=== PATIENT | female | born 1950 | race Caucasian/White ===

== ENCOUNTER 2017-04-17 14:34 | Inpatient (IN) ==
[2017-04-17] MEDS ORDERED: 0.9 % Sodium Chloride 1,000 ML IVC ONE ×2 (15:51→17:40)
--- NOTE | 2017-04-17 16:21 | Emergency Department Note ---
Disposition Clinical Impression: ELIZABETH (acute kidney injury) Syncope Qualifiers: Syncope type: unspecified Qualified Code(s): R55 - Syncope and collapse Altered mental status Qualifiers: Altered mental status type: unspecified Qualified Code(s): R41.82 - Altered mental status, unspecified Disposition: Admitted As Inpatient Condition: Fair Referrals: Clifton Kumar DO [Primary Care Provider] - Forms: ED Satisfaction Letter Time of Disposition: 18:40 Syncope HPI - General Chief Complaint: ED Syncope Stated Complaint: Syncope/ Since Knee surgey on the this mon. Time Seen by Provider: 04/17/17 14:50 Source: patient Limitations: no limitations Nursing Notes Reviewed: Yes Vital Signs Reviewed: Yes - History of Present Illness HPI Narrative: Patient is a 66-year-old female who presents to [facility] ED with a chief complaint of generalized weakness, multiple episodes of almost passing out. It is occurring when she goes from sitting to standing position. States she feels that come on and has been able to catch herself each time. She has not fallen. Denies any nausea, vomiting, fever or chills. No recent illnesses. She did have a knee scope surgery on april 14 though states her symptoms started approximately 1 week prior to this. Past medical history significant for diabetes, hypertension, Crohn's disease. Patient's sister then informed us that patient did fall once and hit her head several days ago. Pt Subjective Complaint: almost passed out Onset (ago): week(s) Duration: minutes(s) Prodromal Symptoms: none Context: standing up Injuries Sustained Associated with Event: none Current Symptoms: weakness History: none Treatments prior to arrival: none Associated trauma secondary to event: No - Related Data Home Medications Medication Instructions Recorded Confirmed Allopurinol [Zyloprim 300 MG] 300 mg PO DAILY 04/14/17 04/14/17 Cholecalciferol (D-3) [Vitamin D] 2,000 unit PO DAILY 04/14/17 04/14/17 Cyanocobalamin (Vitamin B-12) 1,000 mcg PO DAILY 04/14/17 04/14/17 [Vitamin B-12] Folic Acid 1 mg PO DAILY 04/14/17 04/14/17 Gabapentin [Neurontin] 600 mg PO TID 04/14/17 04/14/17 GlipiZIDE [Glipizide ER] 10 mg PO DAILY 04/14/17 04/14/17 Lisinopril [Zestril] 20 mg PO BID 04/14/17 04/14/17 Methotrexate 25 mg SQ TH 04/14/17 04/14/17 Metoprolol Tartrate 50 mg PO BID 04/14/17 04/14/17 Omeprazole [PriLOSEC] 20 mg PO DAILY 04/14/17 04/14/17 Pioglitazone HCl 30 mg PO DAILY 04/14/17 04/14/17 Temazepam [Restoril] 30 mg PO HS 04/14/17 04/14/17 Venlafaxine HCl [Venlafaxine HCl 150 mg PO DAILY 04/14/17 04/14/17 ER] Venlafaxine [Effexor] 75 mg PO DAILY 04/14/17 04/14/17 Previous Rx's Medication Instructions Recorded Clindamycin [Cleocin] 150 mg PO Q6HR #7 capsule 04/14/17 Clindamycin [Cleocin] 150 mg PO Q6HR #7 capsule 04/14/17 HYDROcodone/Acet 5/325 mg [[place] 1 tab PO Q6H PRN 4 Days #14 tab 04/14/17 5-325 mg] Allergies Allergy/AdvReac Type Severity Reaction Status Date / Time No Known Allergies Allergy Verified 04/17/17 14:37 All systems ED: reviewed and negative except as stated. Past Medical History - Past Medical History Attestation: Yes The following information was validated with the patient. Source: patient, obtained from family Medical history: Reports: diabetes, GERD, glaucoma, hypertension, renal disease Psychiatric history: Reports: no psych history - Social History Smoking Status: Never smoker Smokeless Tobacco Status: No Alcohol use: Reports: none Drug use: Reports: none Physical Exam - General Limitations: no limitations General appearance: alert - Head Head exam: atraumatic, normocephalic, normal inspection - Eye Eye exam: Present: normal appearance, EOMI - ENT ENT exam: normal exam, normal oropharynx, mucous membranes moist - Neck Neck exam: Present: normal inspection, full ROM, trachea midline - Chest Chest inspection: Present: normal inspection, symmetric chest wall rise - Respiratory Respiratory exam: Present: normal lung sounds bilaterally - Cardiovascular Cardiovascular exam: Present: regular rate, normal rhythm, normal heart sounds - Abdominal Exam Abdominal exam: Present: soft, Non-Tender. Absent: tenderness, distention, guarding, rebound, rigidity - Extremities Exam Extremities exam: Present: normal inspection, full ROM. Absent: tenderness, pedal edema - Neurological Exam Neurological exam: Present: alert, CN II-XII intact, other (Generalized weakness ). Absent: motor sensory deficit - Psychiatric Psychiatric exam: Present: normal affect, normal mood - Skin Skin exam: Present: warm, dry, intact, normal color Course Course Narrative: Patient seen and examined. Generalized weakness. Patient appears dry, mildly hypotensive with blood pressure 90s over 50s. We will give a liter bolus of fluids. We will also get lab work to evaluate for a syncopal episodes. We will also get orthostatic vital signs. - Reevaluation(s) Reevaluation #1: Patient's lab work shows hemoglobin of 8.9. Patient denies any recent GI bleeds or obvious places of bleeding. Patient's renal function was worse at 3.36. View and also elevated. The uremia could be contributing to some of this patient's confusion. We will admit for altered mental status, generalized weakness, a chaotic. I discussed with hospitalist who has accepted patient for admission. Time: 18:37 Vital Signs Temperature 98 F 04/17/17 14:37 Pulse Rate 76 04/17/17 14:37 Respiratory Rate 20 04/17/17 14:37 Blood Pressure 88/57 04/17/17 14:37 O2 Sat by Pulse Oximetry 96 04/17/17 14:37 Temperature 98 F 04/17/17 14:37 Pulse Rate 70 04/17/17 16:37 Respiratory Rate 12 04/17/17 16:37 Blood Pressure 93/64 04/17/17 16:37 O2 Sat by Pulse Oximetry 96 04/17/17 16:37 Oxygen Delivery Oxygen Delivery Room Air Syncope - Medical Records Medical records reviewed: Yes I reviewed the patient's medical records. - Lab Data Lab results reviewed: Yes I reviewed the patient's lab results. Result diagrams: 04/17/17 15:39 04/17/17 15:39 Lab Results 04/17/17 04/17/17 04/17/17 Range/Units 15:39 15:39 15:39 WBC 7.6 (4.3-11.1) K/mcL RBC 2.96 L (3.82-4.97) M/mcL Hgb 8.9 L (11.5-15.4) g/dL Hct 28.2 L (35.3-44.9) % MCV 95.3 (83.0-100.0) fL MCH 30.1 (28.0-33.3) pg MCHC 31.6 (31.6-35.5) g/dL RDW 21.4 H (11.5-14.5) % Plt Count 146 (140-400) K/mcL MPV 11.4 (9.4-12.4) fL Immature Gran % 0.3 (0-4) % Seg Neutrophils % 76.4 % Lymphocytes % 20.0 % Monocytes % 0.4 % Eosinophils % 2.8 % Basophils % 0.1 % Neutrophils # 5.8 (1.6-8.9) K/mcL Lymphocytes # 1.5 (0.6-4.6) K/mcL Monocytes # 0.0 (0.0-1.3) K/mcL Eosinophils # 0.2 (0.0-0.6) K/mcL Basophils # 0.0 (0.0-0.2) K/mcL Sodium 136 (136-145) mEq/L Potassium 4.3 (3.5-5.1) mEq/L Chloride 113 H (98-107) mEq/L Carbon Dioxide 15 L (23-29) mEq/L BUN 71 H (8-23) mg/dL Creatinine 3.36 H (0.60-1.20) mg/dL Est GFR ( Amer) 17 L (> 60) Est GFR (Non-Af Amer) 14 L (> 60) BUN/Creatinine Ratio 21 (6-26) Glucose 117 H (70-105) mg/dL Calculated Osmolality 304 H (280-300) Calcium 8.5 L (8.6-10.3) mg/dL Total Bilirubin 0.5 (0.3-1.0) mg/dL AST 17 (13-39) Units/L ALT 11 (7-52) Units/L Alkaline Phosphatase 109 H (34-104) Units/L Troponin I < 0.03 (< 0.04) ng/mL Serum Total Protein 6.2 L (6.4-8.9) g/dL Albumin 3.7 (3.5-5.7) g/dL Globulin 2.5 (2.4-3.5) g/dL Albumin/Globulin Ratio 1.5 (1.1-2.2) TSH 4.537 (0.340-5.600) mcIU/mL - Radiology Data Radiology results reviewed: Yes I reviewed the patient's radiology results. Chest X-Ray 04/17/17 14:44 IMPRESSION: No acute process. D/ / Trenton Cooley MD / Trenton Cooley MD Interpreting Provider: Trenton Cooley MD Head CT 04/17/17 17:04 IMPRESSION: No acute intracranial abnormality. D/ / Alexis Garcia MD / Alexis Garcia MD Interpreting Provider: Alexis Garcia MD - EKG Data EKG attestation: Yes I reviewed and interpreted this EKG. EKG results narrative: EKG done at 1445 shows normal sinus rhythm with a rate of 70 beats per minute. Frequent PVCs noted. No acute ST elevation or depression. Normal axis. EKG unchanged from prior EKG done 04/13/2017 Attestation Statement - Attestation Attestation: I, Joe Huerta DO, examined this patient [id number] and my medical decision-making was reviewed with Odalys Brandon DO , Resident Physician. I agree with the documented findings, disposition and treatment plan as described except to the extent set forth below. Please see my progress notes for details. 66-year-old female presents to the emergency room with complaint of near- syncopal events. She recently had a new surgery is completed within the last week. Even prior to going to surgery patient was having near syncopal events. Over the last several days patient has had progressively worsening lightheadedness dizziness and tunnel vision. She has fallen multiple times including one head trauma after falling into the bathtub. Patient denies any other traumatic injuries this point. Physical exam suggesting the best answer questions but she does appear to be slightly somnolent. Patient does have no acute signs of head trauma this time pupils are equal round and reactive extraocular muscles are intact. Lungs are clear heart is regular abdomen is soft nontender nondistended with no guarding no rigidity and no peritoneal symptoms. Patient denies any abdominal complaints or issues. Denies any decreased urinary output for abdominal pain. On physical exam there is clinical concern for other etiology at this point. Patient will be clinically evaluated for near syncope including CT of the head chest x-ray EKG labs including urinalysis and screening laboratory workup. Disposition will be determined once his workup is completed and established. See detailed documentation of the physical exam, medical intervention, medical decision- making and disposition and the resident physician's note 1250 Patient found to have significantly increasing creatinine as well as the plan. Patient may have issues with uremia secondary or in conjunction with her confusion falls and generalized weakness. Patient will require admission and consultation with nephrology. Further evaluation will be started at this time. Disposition will be admission to the hospital. Family was informed imaging modality is still pending.
[2017-04-17 16:22] LABS: Albumin 3.7 g/dL (3.5-5.7); Albumin/Globulin Ratio 1.5 (1.1-2.2); Bilirubin,Total 0.5 mg/dL (0.3-1.0); Calcium 8.5 mg/dL (8.6-10.3); Globulin 2.5 g/dL (2.4-3.5); Potassium 4.3 mEq/L (3.5-5.1); Total Protein 6.2 g/dL (6.4-8.9)
[2017-04-17 16:49] LABS: Basophils % 0.1 %; Eosinophils # 0.2 K/mcL (0.0-0.6); Eosinophils % 2.8 %; Hematocrit 28.2 % (35.3-44.9); Hemoglobin 8.9 g/dL (11.5-15.4); Immature Granulocytes % 0.3 % (0-4); Lymphocytes # 1.5 K/mcL (0.6-4.6); Mean Corpuscular HGB Conc 31.6 g/dL (31.6-35.5); Mean Corpuscular Hemoglobin 30.1 pg (28.0-33.3); Mean Corpuscular Volume 95.3 fL (83.0-100.0); Mean Platelet Volume 11.4 fL (9.4-12.4); Monocytes % 0.4 %; Neutrophils # 5.8 K/mcL (1.6-8.9); Platelet Count 146 K/mcL (140-400); Red Blood Count 2.96 M/mcL (3.82-4.97); Red Cell Distribution Width 21.4 % (11.5-14.5); Segmented Neutrophils % 76.4 %
[2017-04-17 17:46] LABS: Thyroid Stimulating Hormone 4.537 mcIU/mL (0.340-5.600)
[2017-04-17 18:46] LABS: INR 1.1; Prothrombin Time 11.6 Seconds (9.4-12.1)
[2017-04-17] MEDS ORDERED: *HR* HYDROcodone/Acet 5/325 mg TABLET PO PRN (21:54)
[2017-04-17] MEDS ORDERED: Dextrose Gel 15 GM/37.5 ML TUBE PO PRN ×2 (22:03)
[2017-04-17] MEDS ORDERED: Naloxone 0.4 MG/ML INJ IVP PRN (22:03)
[2017-04-17] MEDS ORDERED: D5% in Water 1,000 ML IVC PRN (22:03)
[2017-04-17] MEDS ORDERED: *HR* Dextrose 50 % in Water (Syg) 50 ML SYRINGE IVP PRN (22:03)
--- NOTE | 2017-04-17 22:10 | Internal Med History&Physical ---
<Aubrey Champagne - Last Filed: 04/17/17 22:08> Date of Encounter: 04/17/17 Time of Encounter: 22:08 Assessment and Plan (1) Orthostasis Current visit: Yes Status: Acute The patient reports dizziness, disequilibrium and frequent falls. She reports that she is extremely dizzy and loses her balance with position change. Additionally, she notes that when she goes from a lying or a seated position to standing position everything gets very black and she experiences near syncopal events. She reports that she has fallen times over the last few months. Orthostatic vitals were obtained and found the patient was experiencing orthostasis. 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 Additionally, the orthostasis could be caused by volume depletion due to nausea and vomiting however she has been experiencing this for quite some time and will be for the nausea and vomiting began. While resting she is hemodynamically stable, troponin are negative and EKG is unremarkable. TTE in the morning-consult cardiology pending results Reduce MINERVA inhibitor from 20 mg to 10 mg daily Reduce beta pamella from 50 mg to 25 mg twice a day IV fluid to replace volume deficit Continuous telemetry, continuous SPO2 monitoring Ambulate With assist only (2) Postural dizziness with near syncope Current visit: Yes Status: Acute See plan above (3) [id number] kidney injury Current visit: Yes Status: Acute Acute on chronic kidney injury, patient has a history of CKD stage 4. The Injury is the result of nausea vomiting and dehydration. avoid nephrotoxins IV fluids at 125 mL per hour Recheck BMP in the morning Qualifiers: Acute renal failure type: unspecified Chronic kidney disease stage: unspecified stage Qualified Code(s): N17.9 - Acute kidney failure, unspecified ; N18.9 - Chronic kidney disease, unspecified; N18.9 - Chronic kidney disease, unspecified (4) Nausea and vomiting Current visit: Yes Status: Acute She reports a one-day history of nausea and vomiting. The last time she vomited was this afternoon after eating lunch. She states she has had a decrease in oral intake. Antiemetics IV fluids for rehydration Qualifiers: Vomiting Intractability: non-intractable Qualified Code(s): R11.2 - Nausea with vomiting, unspecified (5) Dehydration Current visit: Yes Status: Acute Dehydration secondary to nausea and vomiting. See plan above (6) Anemia Current visit: Yes Status: Acute Chronic anemia in the setting of CKD. Stable. Denies any active bleeding. Continue to monitor, CBC in the morning Qualifiers: Anemia type: unspecified type Qualified Code(s): D64.9 - Anemia, unspecified (7) Diabetes Current visit: Yes Status: Acute Sliding scale insulin coverage on a diabetic diet Qualifiers: Diabetes mellitus type: type 2 Diabetes mellitus complication status: without complication Diabetes mellitus chcf insulin use: without seniour insight manager use Qualified Code(s): E11.9 - Type 2 diabetes mellitus without complications (8) Falls Current visit: Yes Status: Acute Qualifiers: Encounter type: initial encounter Qualified Code(s): W19.XXXA - Unspecified fall, initial encounter (9) Hypertension Current visit: Yes Status: Acute H/O HTN, BP stable with rest, hypotensive with activity d/t orthostasis -decrease MINERVA to 10mg -decrease BB to 25mg BID -closely monitor hemodynamic status Qualifiers: Hypertension type: unspecified Qualified Code(s): I10 - Essential (primary ) hypertension (10) DVT prophylaxis Current visit: Yes Status: Acute EPCD's Internal Medicine - H&P: HPI Chief complaint: Dizziness, disequilibrium, falls Admitted From: Home Plans for Post Hospital Care: Home History of present illness: Ms. Schilling is a 66 year old female with a PMH of diabetes, GERD, glaucoma, hypertension, and chronic kidney disease stage IV. She presents to [facility] ED today with chief complaint of generalized weakness, multiple falls, near-syncope , disequilibrium and lightheadedness. She reports is an ongoing for greater than a month. She reports that is exacerbated when going from a lying or sitting to a standing position. She denies any fever, chills, chest pain, palpitations, tachycardia, abdominal pain, unilateral extremity swelling or pain. She admits to nausea and vomiting which began yesterday and has proceeded throughout the day as well. Past Med Surg Social Fam HX - Past Medical History Medical history: diabetes, GERD, glaucoma, hypertension, renal disease Psychiatric history: no psych history - Social History Smoking Status: Never smoker Smokeless Tobacco Status: No Alcohol use: none Drug use: none - Additional Family History Additional family history: Noncontributory Internal Medicine - H&P: Meds Allopurinol [Zyloprim 300 MG] 300 mg PO DAILY 04/14/17 [History] Cholecalciferol (D-3) [Vitamin D] 2,000 unit PO DAILY 04/14/17 [History] Cyanocobalamin (Vitamin B-12) [Vitamin B-12] 1,000 mcg PO DAILY 04/14/17 [ History] Folic Acid 1 mg PO DAILY 04/14/17 [History] Gabapentin [Neurontin] 600 mg PO TID 04/14/17 [History] GlipiZIDE [Glipizide ER] 10 mg PO BID 04/14/17 [History] HYDROcodone/Acet 5/325 mg [[place] 5-325 mg] 1 tab PO Q6H PRN 4 Days #14 tab 04/14 [Rx] Lisinopril [Zestril] 20 mg PO BID 04/14/17 [History] Methotrexate 25 mg SQ TH 04/14/17 [History] Metoprolol Tartrate 50 mg PO BID 04/14/17 [History] Omeprazole [PriLOSEC] 20 mg PO DAILY 04/14/17 [History] Pioglitazone HCl 30 mg PO DAILY 04/14/17 [History] Temazepam [Restoril] 30 mg PO HS 04/14/17 [History] Venlafaxine HCl [Venlafaxine HCl ER] 150 mg PO DAILY 04/14/17 [History] Venlafaxine [Effexor] 75 mg PO DAILY 04/14/17 [History] 3 Allergy/AdvReac Type Severity Reaction Status Date / Time No Known Allergies Allergy Verified 04/17/17 14:37 All Systems PM: A 10-system review of systems was performed and is negative for pertinent findings except as documented above in the HPI. - Constitutional Constitutional: falls - EENT Eyes: no change in vision, no discharge, no pain, no photophobia Ears: no ear discharge, no ear pain, no tinnitus Nose, mouth and throat: no dysphagia, no nasal discharge, no neck pain, no sore throat - Cardiovascular Cardiovascular ROS IM: dyspnea on exertion, lightheadedness, no chest pain, no diaphoresis, no dyspnea, no palpitations, no syncope (near syncope) - Respiratory Respiratory: dyspnea on exertion, no cough, no hemoptysis, no wheezing, no pain on inspiration, no chest congestion - Gastrointestinal Gastrointestinal: no abdominal pain, no diarrhea, no hematemesis, no hematochezia, no melena, no nausea, no vomiting - Genitourinary Genitourinary: no change in urinary stream, no dysuria, no flank pain, no hematuria - Musculoskeletal Musculoskeletal ROS IM: no numbness, no tingling - Neurological Neurological ROS: as per HPI, disequilibrium, dizziness, frequent falls - Constitutional Vitals: Temp Pulse Resp BP Pulse Ox 97.7 F 68 16 112/58 95 04/17/17 20:06 04/17/17 20:06 04/17/17 20:06 04/17/17 21:40 04/17/17 20:06 General appearance: Present: cooperative, A&O X 3, no acute distress, answers questions appropriately - Head Head exam: Present: atraumatic, normocephalic - Eye Eye exam: Present: PERRL, conjuntiva pink, sclera anicteric Pupils: Present: PERRL - Neck Neck exam general surgery: Present: supple, trachea midline. Absent: lymphadenopathy - Respiratory Respiratory exam: Present: CTAB. Absent: accessory muscle use, rales, rhonchi, wheezes - Cardiovascular Cardiovascular exam: Present: RRR, +S1, +S2. Absent: diastolic murmur, gallop, rubs, systolic murmur - GI/Abdominal GI/Abdominal exam: Present: normal bowel sounds, soft, no peritoneal signs. Absent: distended, tenderness - Extremities Exam Extremities exam: Present: warm, radial pulses palpable and symmetrical. Absent : calf tenderness, cyanotic, pedal edema - Neurological Exam Neurological exam: Present: alert, CN II-XII intact, oriented X3, no focal deficits, strengths equal and symetr throughout. Absent: normal gait, pronater drift, facial droop, speech deficit - Expanded Neurological Exam Neurological exam expanded: Absent: expressive aphasia, receptive aphasia Speech: Present: fluid speech. Absent: expressive aphasia Cranial Nerves: EOM's intact PM: Normal, gag reflex PM: Normal, nystagmus PM: Normal, tongue deviation PM: Normal Cerebellar function: finger to nose: Normal, heel to smas: Normal, Romberg: Normal Upper motor neuron: Babinski sign: Normal, Robetro neglect: Normal, pronator drift : Normal, sensory extinction: Normal Neuro motor strength exam: LUE: 5, RUE: 5, LLE: 5, RLE: 5 Coma Scale Eye Opening: Spontaneous Coma Scale Motor Response: Obeys Commands Coma Scale Verbal Response: Oriented Coma Scale Total: 15 - Skin Skin exam: Present: dry, intact Internal Med - H&P Results - Labs CBC & Chem 7: 04/17/17 15:39 04/17/17 15:39 - EKG Data EKG shows normal: sinus rhythm - EKG Data EKG comments: Sinus rhythm with frequent PVC's 04/17/17 22:16 - Impressions Impressions Chest X-Ray 04/17/17 14:44 IMPRESSION: No acute process. D/ / Trenton Cooley MD / Trenton Cooley MD Interpreting Provider: Trenton Cooley MD Head CT 04/17/17 17:04 IMPRESSION: No acute intracranial abnormality. D/ / Alexis Garcia MD / Alexis Garcia MD Interpreting Provider: Alexis Garcia MD <James Cunha - Last Filed: 04/18/17 01:39> Date of Encounter: 04/18/17 Internal Medicine - H&P: HPI History of present illness: Ms. Schilling is a 66 year old female Past Med Surg Social Fam HX - Family History Father Family Member Ethnicity: Non- Living Status: Age at : 73 Hx Family Cancer: Yes (lung cancer) Mother Age: 88 Family Member Ethnicity: Non- Living Status: Still Living All Systems PM: A 10-system review of systems was performed and is negative for pertinent findings except as documented above in the HPI. - Constitutional Vitals: Temp Pulse Resp BP Pulse Ox 97.9 F 80 16 100/58 95 04/17/17 23:34 04/17/17 23:34 04/17/17 23:34 04/17/17 23:34 04/17/17 23:34 Internal Med - H&P Results - Labs CBC & Chem 7: 04/18/17 00:22 04/17/17 15:39 Labs: Short CBC 04/18/17 Range/Units 00:22 WBC 5.7 (4.3-11.1) K/mcL Hgb 7.9 L (11.5-15.4) g/dL Hct 26.5 L (35.3-44.9) % Plt Count 115 L (140-400) K/mcL Cardiac Enzymes 04/18/17 Range/Units 00:22 Troponin I < 0.03 (< 0.04) ng/mL Urine 04/17/17 Range/Units 21:47 Urine Color Yellow (Yellow) Urine Clarity Cloudy A (Clear) Urine pH 6.0 (5.0-8.0) pH Units Ur Specific [place] 1.017 (1.010-1.025) Urine Protein 30 H (Neg-Trace) mg/dL Urine Glucose (UA) Normal (Normal) mg/dL - Attending Attestation I examined this patient and my medical decision-making was reviewed with the Resident Physician. I agree with the documented findings, disposition and treatment plan as described except to the extent set forth below.
[2017-04-17] MEDS ORDERED: 0.9 % Sodium Chloride 1,000 ML IVC SCH (22:15)
[2017-04-17 22:32] LABS: Bilirubin,Urine Negative (Negative); Blood,Urine Negative (Negative); Clarity,Urine Cloudy (Clear); Color,Urine Yellow (Yellow); Glucose,Urine (UA) Normal (Normal); Ketones,Urine Negative (Negative); Leukocyte Esterase,Urine Negative (Negative); Nitrite,Urine Negative (Negative); Protein,Urine 30 mg/dL (Neg-Trace); Specific Gravity,Urine 1.017 (1.010-1.025); Urobilinogen,Urine Normal (Normal)
[2017-04-17 22:34] LABS: Bacteria,Urine None Seen per hpf (None-Few); Hyaline Casts,Urine Few per lpf (None-Few); RBC,Urine 0-3 per hpf (0-3); Squamous Epithelial Cell,Urine Many per lpf (None-Few)
[2017-04-17 22:38] LABS: Amphetamine Screen,Urine Negative ng/mL (Cutoff=1000); Barbiturate Screen,Urine Negative ng/mL (Cutoff=200); Benzodiazepines Screen,Urine Positive ng/mL (Cutoff=200); Cannabinoid Screen,Urine Negative ng/mL (Cutoff = 50); Cocaine Screen,Urine Negative ng/mL (Cutoff= 300); Opiate Screen,Urine Positive ng/mL (Cutoff=300); Phencyclidine Screen,Urine Negative ng/mL (Cutoff=25)
[2017-04-18 01:09] LABS: Hematocrit 26.5 % (35.3-44.9); Hemoglobin 7.9 g/dL (11.5-15.4); Mean Corpuscular HGB Conc 29.8 g/dL (31.6-35.5); Mean Corpuscular Hemoglobin 29.6 pg (28.0-33.3); Mean Corpuscular Volume 99.3 fL (83.0-100.0); Mean Platelet Volume 11.2 fL (9.4-12.4); Platelet Count 115 K/mcL (140-400); Red Blood Count 2.67 M/mcL (3.82-4.97); Red Cell Distribution Width 21.2 % (11.5-14.5)
[2017-04-18 02:33] LABS: Calcium 8.1 mg/dL (8.6-10.3); Potassium 3.8 mEq/L (3.5-5.1)
[2017-04-18] MEDS ORDERED: Gabapentin 300 MG CAPSULE PO SCH (09:00)
[2017-04-18] MEDS ORDERED: Lisinopril 20 MG TABLET PO SCH (09:00)
[2017-04-18] MEDS: Folic Acid 1 MG TABLET PO SCH (09:08)
[2017-04-18] MEDS: Cholecalciferol (D-3) 1,000 UNIT TABLET PO SCH (09:08)
[2017-04-18] MEDS: Cyanocobalamin (B-12) 1,000 MCG TABLET PO SCH (09:08)
[2017-04-18] MEDS: Insulin LISPRO 300 UNITS/3 ML VIAL SQ SCH ×4 (09:09→21:48)
[2017-04-18] MEDS: Sodium Bicarbonate 150 MEQ in D5% in Water 1,000 ML IVC SCH (11:02)
[2017-04-18] MEDS: Gabapentin 100 MG CAPSULE PO SCH ×2 (14:42→21:49)
--- NOTE | 2017-04-18 15:24 | Internal Med Progress Note ---
Date of Encounter: 04/18/17 Time of Encounter: 14:56 - Subjective Interval history: Patient seen and examined at bedside. Reports of feeling better since hospitalization. States there is improvement in her dizziness and in her n/v tolerating PO intake better Assessment and Plan (1) Orthostasis Current visit: Yes Status: Acute Noted to be positive for orthostatic hypotension concern for drug induced hypotension in addition to the orthostasis as pt's BP has been appropriately controlled with half the dose of BB and holding home dose of Lisinopril Pt clinically improving with adjustment in home medications Consider adding Midodrine prior to discharge if symptoms persist (2) Postural dizziness with near syncope Current visit: Yes Status: Acute See plan above (3) Zmnbk-np-fsglyck kidney injury Current visit: Yes Status: Acute Acute on chronic kidney injury, patient has a history of CKD stage 4 Likely secondary to dehydration from the nausea and vomiting renal function improved from previous day continue IV fluids hold Lisinopril at this time will continue to closely monitor Qualifiers: Acute renal failure type: unspecified Chronic kidney disease stage: unspecified stage Qualified Code(s): N17.9 - Acute kidney failure, unspecified ; N18.9 - Chronic kidney disease, unspecified; N18.9 - Chronic kidney disease, unspecified (4) Nausea and vomiting/NAGMA Current visit: Yes Status: Acute Improving continue anti-emetics support as needed noted to have normal anion gap metabolic acidosis likely secondary to GI losses from the n/v Bicarb deficit: 8.6am will d/c 0.9%NS and start 3am of NaBicarb in D5W at 100cc/hr one amp bicarb IVP given will closely monitor Qualifiers: Vomiting Intractability: non-intractable Qualified Code(s): R11.2 - Nausea with vomiting, unspecified (5) Dehydration Current visit: Yes Status: Acute Dehydration secondary to nausea and vomiting. See plan above (6) Anemia Current visit: Yes Status: Acute H&H low but acceptable no acute bleeding reported continue to closely monitor H&H Qualifiers: Anemia type: unspecified type Qualified Code(s): D64.9 - Anemia, unspecified (7) Diabetes Current visit: Yes Status: Acute Sliding scale insulin coverage on a diabetic diet Qualifiers: Diabetes mellitus type: type 2 Diabetes mellitus complication status: without complication Diabetes mellitus intermediate card tender insulin use: without shelter use Qualified Code(s): E11.9 - Type 2 diabetes mellitus without complications (8) Falls Current visit: Yes Status: Acute obtain PT evaluation prior to discharge Qualifiers: Encounter type: initial encounter Qualified Code(s): W19.XXXA - Unspecified fall, initial encounter (9) Hypertension Current visit: Yes Status: Acute BP within acceptable range despite lowering BB dose and holding MINERVA inhibitor concern for drug induced hypotension contributing to patient's presenting symptoms closely monitor BP and adjust home meds prior to discharge Qualifiers: Hypertension type: unspecified Qualified Code(s): I10 - Essential (primary ) hypertension (10) DVT prophylaxis Current visit: Yes Status: Acute EPCD's - Constitutional Vitals: Temp Pulse Resp BP Pulse Ox 98.1 F 90 16 143/72 93 04/18/17 13:00 04/18/17 13:00 04/18/17 13:00 04/18/17 13:00 04/18/17 13:00 General appearance: Present: cooperative, A&O X 3, no acute distress, obese, answers questions appropriately - Head Head exam: Present: atraumatic, normocephalic - Eye Eye exam: Present: conjuntiva pink, sclera anicteric - Respiratory Respiratory exam: Present: CTAB. Absent: respiratory distress, wheezes - Cardiovascular Cardiovascular exam: Present: RRR, +S1, +S2. Absent: diastolic murmur, gallop, rubs, systolic murmur - GI/Abdominal GI/Abdominal exam: Present: normal bowel sounds, soft, no peritoneal signs. Absent: distended, tenderness - Extremities Exam Extremities exam: Present: warm, radial pulses palpable and symmetrical. Absent : calf tenderness - Neurological Exam Neurological exam: Present: alert, oriented X3 Internal Medicine: Result - Labs CBC & Chem 7: 04/18/17 00:22 04/18/17 00:22 Labs: Short CBC 04/18/17 Range/Units 00:22 WBC 5.7 (4.3-11.1) K/mcL Hgb 7.9 L (11.5-15.4) g/dL Hct 26.5 L (35.3-44.9) % Plt Count 115 L (140-400) K/mcL BMP 04/18/17 00:22 Sodium 140 Potassium 3.8 Chloride 118 H Carbon Dioxide 13 L BUN 67 H Creatinine 2.91 H Glucose 67 L Calcium 8.1 L Cardiac Enzymes 04/18/17 Range/Units 00:22 Troponin I < 0.03 (< 0.04) ng/mL Urine 04/17/17 Range/Units 21:47 Urine Color Yellow (Yellow) Urine Clarity Cloudy A (Clear) Urine pH 6.0 (5.0-8.0) pH Units Ur Specific [place] 1.017 (1.010-1.025) Urine Protein 30 H (Neg-Trace) mg/dL Urine Glucose (UA) Normal (Normal) mg/dL - ABG Interpretation ABG results: PT/INR, D-dimer PT 11.6 Seconds (9.4-12.1) 04/17/17 15:35 - Impressions Impressions Echocardiogram 04/18/17 22:07 Impressions: LVEF 60-65%. Normal LV chamber size, wall thickness and function. Mild left ventricular diastolic dysfunction. Normal right ventricular structure and function. No evidence of pulmonary hypertension. No significant valvular dysfunction. Left Ventricular Wall Motion: Rest Echo Findings All wall segments showed normal motion. Findings: Study Quality * Technically adequate exam. ECG Findings * Normal sinus rhythm. Left Ventricle * LVEF 60-65%. * Normal LV chamber size, wall thickness and function. * Mild left ventricular diastolic dysfunction. Right Ventricle * Normal right ventricular structure and function. Left Atrium * Mild to moderately dilated left atrium. Right Atrium * Mid to moderately dilated right atrium. Interatrial Septum * Interatrial septum not well evaluated. Aortic Valve * Trileaflet aortic valve with normal function. * No aortic regurgitation. * No aortic stenosis. Mitral Valve * Normal mitral valve structure and function. * No mitral regurgitation. * No mitral stenosis. Tricuspid Valve * Normal tricuspid valve structure and function. * Trace tricuspid regurgitation. * No evidence of pulmonary hypertension. Pulmonic Valve * Normal pulmonic valve structure and function. * Trace pulmonic regurgitation. Aorta * Normally sized aortic root. Pericardium * The pericardium appears normal. IVC * Normal IVC dimensions and inspiratory collapse. Pulmonary Artery * Normal visualized portions of the main pulmonary artery. - VTE Documentation of Mechanical Device: Intermittent pneumatic compression device Consult Discharge Plan - Plan Referrals: Clifton Kumar DO [Primary Care Provider] -
--- NOTE | 2017-04-18 18:40 | Electrocardiograph Report ---
[address] [address] Test Date: 2017-04-17 Pat Name: Jennifer Schilling Department: [id number] Room: 2A22 Gender: F Adoption Services Manager: : [id number] Requested By: Joe Huerta Order Number: [id number] Reading MD: Claudia Spear Measurements Intervals [place] Rate: 70 P: -4 OK: 148 QRS: 2 QRSD: 102 T: 61 QT: 394 QTc: 414 Interpretive Statements SINUS RHYTHM WITH FREQUENT VENTRICULAR PREMATURE COMPLEXES NONSPECIFIC ST & T-WAVE ABNORMALITY ABNORMAL RHYTHM ECG Electronically Signed On 04-18-2017 18:38:51 EST by Claudia Spear
[2017-04-18] MEDS: Temazepam 15 MG CAPSULE PO SCH (21:49)
[2017-04-18] MEDS: Venlafaxine XR (24 HR) 150 MG CAP.ER.24H PO SCH (21:51)
[2017-04-19] MEDS: Sodium Bicarbonate 150 MEQ in D5% in Water 1,000 ML IVC SCH ×3 (02:15→20:08)
[2017-04-19 04:49] LABS: Calcium 7.9 mg/dL (8.6-10.3); Magnesium 0.9 mg/dL (1.6-2.6); Phosphorous 2.9 mg/dL (2.7-4.5); Potassium 2.8 mEq/L (3.5-5.1)
[2017-04-19 05:06] LABS: Eosinophils % 2.1 %; Hematocrit 19.5 % (35.3-44.9); Immature Granulocytes % 0.3 % (0-4)
[2017-04-19 05:08] LABS: Eosinophils # 0.1 K/mcL (0.0-0.6); Hemoglobin 6.4 g/dL (11.5-15.4); Lymphocytes % 30.5 %; Mean Corpuscular HGB Conc 32.8 g/dL (31.6-35.5); Mean Corpuscular Hemoglobin 30.2 pg (28.0-33.3); Mean Platelet Volume 10.4 fL (9.4-12.4); Monocytes % 0.3 %; Neutrophils # 2.2 K/mcL (1.6-8.9); Nucleated Red Blood Cells 0.6 /100 WBC (0); Red Blood Count 2.12 M/mcL (3.82-4.97); Red Cell Distribution Width 20.2 % (11.5-14.5); Segmented Neutrophils % 66.8 %
[2017-04-19 05:10] LABS: Platelet Count 95 K/mcL (140-400)
[2017-04-19 05:38] LABS: Anisocytosis 2+ (Not Present); Macrocytosis Present (Not Present); Platelet Estimate Decreased (Normal)
[2017-04-19 05:39] LABS: Microcytosis Present (Not Present)
[2017-04-19] MEDS ORDERED: Potassium Chloride 40 MEQ, Lidocaine 1% 2 ML in D5% in Water 500 ML IVPB ONE (06:00)
[2017-04-19] MEDS: Gabapentin 100 MG CAPSULE PO SCH ×3 (08:55→20:04)
[2017-04-19] MEDS: Cyanocobalamin (B-12) 1,000 MCG TABLET PO SCH (08:55)
[2017-04-19] MEDS: Cholecalciferol (D-3) 1,000 UNIT TABLET PO SCH (08:55)
[2017-04-19] MEDS: Venlafaxine XR (24 HR) 150 MG CAP.ER.24H PO SCH (08:56)
[2017-04-19] MEDS: Insulin LISPRO 300 UNITS/3 ML VIAL SQ SCH ×4 (08:59→20:07)
[2017-04-19] MEDS: Ondansetron 4 MG/2 ML VIAL IVP PRN (09:09)
[2017-04-19] MEDS: Folic Acid 1 MG TABLET PO SCH (09:09)
--- NOTE | 2017-04-19 11:54 | Gastroenterology Consult Note ---
<Marj Pepper - Last Filed: 04/19/17 12:02> Date of Encounter: 04/19/17 Time of Encounter: 11:20 - Assessment and plan (1) Crohns disease Current Visit: Yes Status: Acute Assessment and plan: Pt has history of Crohn's disease since . She has been on methotrexate for 2 years. She has continued 10-15 BM a day, humira and other medications were prescribed but were not covered by insurance, and pt was unable to afford. She is admitted with near syncope, weakness. She has drop in hgb level. Will check fecal calpro, to rule out Crohn's flare and GI panel to rule out C-dif. She is being transfused per hospitalist service. (2) Anemia Current Visit: Yes Status: Acute Assessment and plan: Denies any active or recent bleeding, will also order iron panel and ferritin. Qualifiers: Anemia type: unspecified type Qualified Code(s): D64.9 - Anemia, unspecified - Time Spent With Patient Total time spent is greater than 50% in coordination of care (as documented) at patient's floor/unit and/or counseling patient: GI History of Present Illness - Data of Consult Patient: known to practice within the last 3 years Consult date: 04/19/17 Requesting Physician: Lorelei Sarmiento MD - Consult Narrative Reason for consult: anemia/Crohn's disease History of present illness: Ms. Schilling is a 66 year old female with a PMH of diabetes, GERD, glaucoma, hypertension, chronic kidney disease stage IV, and crohn's disease. She presents to [facility] ED today with chief complaint of generalized weakness, multiple falls, near-syncope, disequilibrium and lightheadedness. She reports is an ongoing for greater than a month and is worse with position changes. She denies any fever, chills, chest pain, palpitations, tachycardia, abdominal pain , unilateral extremity swelling or pain. She reported nausea and vomiting for one day prior to presentation. She has a history of Crohn's disease for which she is followed by Dr Pickard. She had hemicolectomy in 1981. She has been on methotrexate for since 03/21. She was tried on asacol in the past. Humira was prescribed but she was unable to afford due to high copay. She reports 10-15 BMs a day which is normal for her. She states she had some bleeding a while ago but none recently. She denies any black or tarry stools. The patients hemoglobin dropped to 6.4 this morning from a baseline of 10-11. Therefore GI was consult noted. WBCs 3.3, platelet count 95, sodium 141, potassium 2.8, BUN 44, creatinine 1.72, total bilirubin 0.5, AST 17, ALT 11, alkaline phosphatase 109, albumin 3.7. Colonoscopy: 10/20 ileum normal, erythematous mucosa in rectum and sigmoid colon , pathology chronic inflammation EGD: 2012 medium sized hiatal hernia, gastritis NSAIDS/ASA: denies Anticoagulants: denies Past Med Surg Social Fam HX - Past Medical History Medical history: diabetes, GERD, glaucoma, hypertension, renal disease Psychiatric history: no psych history - Social History Smoking Status: Never smoker Smokeless Tobacco Status: No Alcohol use: none Drug use: none - Family History Father Family Member Ethnicity: Non- Living Status: Age at : 73 Hx Family Cancer: Yes (lung cancer) Mother Age: 88 Family Member Ethnicity: Non- Living Status: Still Living Review of Systems: GI: as per [facility]: denies fever or chills EYES: denies yellow discoloration ENT: denies pain with swallowing or difficulty swallowing CARDIO: denies chest pain, palpitations RESP: Shortness of breath with exertion : denies change in color of urine NEURO: see HPI HEME: Denies any bruising MS: chronic back and joint pain. DERM: denies rash or itching PSYCH: Denies history of anxiety or depression - Constitutional Vitals: Temp Pulse Resp BP Pulse Ox 98.7 F 91 15 124/74 93 04/19/17 07:00 04/19/17 07:00 04/19/17 07:00 04/19/17 07:00 04/19/17 07:00 Exam: CONSTITUTIONAL:~alert, no acute distress.~HEAD:~normocephalic.~EYES:~no jaundice.~NECK:~no obvious swelling.~HEART:~regular rate and rhythm, no murmurs. ~LUNGS:~bilateral good air entry.~ABDOMEN:~non distended, soft, diffusely tender , midline abdominal scar well healed, no organomegaly.~RECTAL EXAM:~Deferred.~ EXTREMITIES:~no clubbing, cyanosis, 1+ BLE edema~SKIN:~ pallor noted.~NEUROLOGIC :~no obvious focal defect.~~~~ Results - Labs CBC & Chem 7: 04/19/17 04:49 04/19/17 03:44 Labs: Last Result Calcium 7.9 mg/dL (8.6-10.3) L 04/19/17 03:44 Troponin I < 0.03 ng/mL (< 0.04) 04/18/17 00:22 Urine Opiates Screen Positive ng/mL (Lojcij=121) H 04/17/17 21:47 Entire Visit Hgb 6.4 g/dL (11.5-15.4) L D 04/19/17 04:49 Hct 19.5 % (35.3-44.9) L 04/19/17 04:49 PT 11.6 Seconds (9.4-12.1) 04/17/17 15:35 Total Bilirubin 0.5 mg/dL (0.3-1.0) 04/17/17 15:39 AST 17 Units/L (13-39) 04/17/17 15:39 ALT 11 Units/L (7-52) 04/17/17 15:39 - ABG ABG results: PT/INR, D-dimer PT 11.6 Seconds (9.4-12.1) 04/17/17 15:35 - Impressions Impressions Echocardiogram 04/18/17 22:07 Impressions: LVEF 60-65%. Normal LV chamber size, wall thickness and function. Mild left ventricular diastolic dysfunction. Normal right ventricular structure and function. No evidence of pulmonary hypertension. No significant valvular dysfunction. Left Ventricular Wall Motion: Rest Echo Findings All wall segments showed normal motion. Findings: Study Quality * Technically adequate exam. ECG Findings * Normal sinus rhythm. Left Ventricle * LVEF 60-65%. * Normal LV chamber size, wall thickness and function. * Mild left ventricular diastolic dysfunction. Right Ventricle * Normal right ventricular structure and function. Left Atrium * Mild to moderately dilated left atrium. Right Atrium * Mid to moderately dilated right atrium. Interatrial Septum * Interatrial septum not well evaluated. Aortic Valve * Trileaflet aortic valve with normal function. * No aortic regurgitation. * No aortic stenosis. Mitral Valve * Normal mitral valve structure and function. * No mitral regurgitation. * No mitral stenosis. Tricuspid Valve * Normal tricuspid valve structure and function. * Trace tricuspid regurgitation. * No evidence of pulmonary hypertension. Pulmonic Valve * Normal pulmonic valve structure and function. * Trace pulmonic regurgitation. Aorta * Normally sized aortic root. Pericardium * The pericardium appears normal. IVC * Normal IVC dimensions and inspiratory collapse. Pulmonary Artery * Normal visualized portions of the main pulmonary artery. Consult Discharge Plan - Plan Referrals: Clifton Kumar DO [Primary Care Provider] - 04/25/17 9:30 am (Please follow up as schedule...) <Margarito Pickard - Last Filed: 04/19/17 21:01> Date of Encounter: 04/19/17 - Time Spent With Patient Total time spent is greater than 50% in coordination of care (as documented) at patient's floor/unit and/or counseling patient: GI History of Present Illness - Data of Consult Requesting Physician: Lorelei Sarmiento MD - Consult Narrative History of present illness: Ms. Schilling is a 66 year old female - Constitutional Vitals: Temp Pulse Resp BP Pulse Ox 98.5 F 98 18 122/65 95 04/19/17 18:39 04/19/17 18:39 04/19/17 18:39 04/19/17 18:39 04/19/17 18:39 Results - Labs CBC & Chem 7: 04/19/17 04:49 04/19/17 16:51 Labs: Last Result Calcium 7.9 mg/dL (8.6-10.3) L 04/19/17 03:44 Iron 137 mcg/dL (50-170) 04/19/17 11:49 % Saturation 39 % (15-50) 04/19/17 11:49 Transferrin 248 mg/dL (203-362) 04/19/17 11:49 Ferritin 215 ng/ml (10-120) H 04/19/17 11:49 Troponin I < 0.03 ng/mL (< 0.04) 04/18/17 00:22 Urine Opiates Screen Positive ng/mL (Vknlyd=208) H 04/17/17 21:47 Entire Visit Hgb 6.4 g/dL (11.5-15.4) L D 04/19/17 04:49 Hct 19.5 % (35.3-44.9) L 04/19/17 04:49 PT 11.6 Seconds (9.4-12.1) 04/17/17 15:35 Ferritin 215 ng/ml (10-120) H 04/19/17 11:49 Total Bilirubin 0.5 mg/dL (0.3-1.0) 04/17/17 15:39 AST 17 Units/L (13-39) 04/17/17 15:39 ALT 11 Units/L (7-52) 04/17/17 15:39 - ABG ABG results: PT/INR, D-dimer PT 11.6 Seconds (9.4-12.1) 04/17/17 15:35 - Attending Attestation I examined this patient and my medical decision-making was reviewed with the HEAT TREATING FURNACE TENDER. I agree with the documented findings, disposition and treatment plan as described except to the extent set forth below. Pt with Crohns, on methrexate but still with many BMs. Will start on solumedrol for poss flare
[2017-04-19] MEDS ORDERED: 0.9 % Sodium Chloride 250 ML ONE (12:49)
[2017-04-19 13:01] LABS: % Iron Saturation 39 % (15-50); Ferritin 215 ng/ml (10-120); Iron 137 mcg/dL (50-170); Transferrin 248 mg/dL (203-362)
[2017-04-19 15:18] LABS: Adenovirus F 40/41 PCR Not detected (Not detect); Astrovirus PCR Not detected (Not detect); C.difficile Toxin A/B by PCR Not detected (Not detect); Campylobacter by PCR Not detected (Not detect); Cryptosporidium by PCR Not detected (Not detect); Cyclospora cayetanensis PCR Not detected (Not detect); E. coli O157 by PCR Not detected (Not detect); Entamoeba histolytica PCR Not detected (Not detect); Enteroaggregative E.coli(EAEC) Not detected (Not detect); Enteropathogenic E.coli(EPEC) Not detected (Not detect); Enterotoxigenic E.coli (ETEC) Not detected (Not detect); Giardia lamblia PCR Not detected (Not detect); Norovirus GI/GII PCR Not detected (Not detect); Plesiomonas shigelloides PCR Not detected (Not detect); Rotavirus A PCR Not detected (Not detect); Salmonella PCR Not detected (Not detect); Sapovirus PCR Not detected (Not detect); Shig/EnteroinvasiveE coli EIEC Not detected (Not detect); Shigalike tox-prod E coli STEC Not detected (Not detect); Vibrio PCR Not detected (Not detect); Vibrio cholerae PCR Not detected (Not detect); Yersinia enterocolitica PCR Not detected (Not detect)
--- NOTE | 2017-04-19 16:39 | Internal Med Progress Note ---
Date of Encounter: 04/19/17 Time of Encounter: 10:30 - Assessment and plan (1) Anemia Current Visit: Yes Status: Acute Assessment and plan: Hgb dropped to 6.4; previously 10. No obvious active bleeding. Patient denies melena. Symptomatic with general weakness. 2 units PRBC ordered. Hemodynamically stable. GI consult. Check occult stool. Monitor H&H, transfuse for Hgb less than 7. Qualifiers: Anemia type: unspecified type Qualified Code(s): D64.9 - Anemia, unspecified (2) Hypokalemia Current Visit: Yes Status: Acute Assessment and plan: K 2.4; secondary to loose stools. Replacement ordered. Monitor repeat BMP, magnesium. (3) Crohns disease Current Visit: Yes Status: Acute Assessment and plan: hx Crohn's disease since 1980s. Has been on methotrexate for 2 years. Reports 10 -15 BM a day, humira and other medications were prescribed but were not covered by insurance. Fecal ELIAS pro-to rule out Crohn's flare and GI panel to rule out C. difficile pending. GI following Qualifiers: Gastrointestinal tract location: unspecified location Digestive disease complication type: unspecified complication Qualified Code(s): K50.919 - Crohn 's disease, unspecified, with unspecified complications (4) Neqgc-[id number]-mzpnwpo kidney injury Current Visit: Yes Status: Acute Assessment and plan: secondary excessive GI losses. Renal function improving with IV fluids. Avoid nephrotoxic agents if possible. Monitor repeat CMP. Qualifiers: Acute renal failure type: unspecified Chronic kidney disease stage: unspecified stage Qualified Code(s): N17.9 - Acute kidney failure, unspecified ; N18.9 - Chronic kidney disease, unspecified; N18.9 - Chronic kidney disease, unspecified (5) Orthostasis Current Visit: Yes Status: Acute Assessment and plan: Noted to be positive for orthostatic hypotension concern for drug induced hypotension in addition to the orthostasis as pt's BP has been appropriately controlled with half the dose of BB and holding home dose of Lisinopril Pt clinically improving with adjustment in home medications Consider adding Midodrine prior to discharge if symptoms persist (6) Nausea and vomiting Current Visit: Yes Status: Acute Assessment and plan: normal anion gap metabolic acidosis likely secondary to GI losses from the n/v. Appears to be improving on 2/14. Continue IV fluids. Monitor repeat CMP. Qualifiers: Vomiting Intractability: non-intractable Qualified Code(s): R11.2 - Nausea with vomiting, unspecified (7) DVT prophylaxis Current Visit: Yes Status: Acute Assessment and plan: SCD - Subjective Interval history: Seen and examined at bedside; patient is new to me. Information obtained from chart review and patient report. Patient complains of being weak and tired. Still having frequent loose stools. No active bleeding. Patient denies melena. She is agreeable to 2 units PRBC. - Constitutional Vitals: Temp Pulse Resp BP Pulse Ox 98.8 F 82 16 130/75 93 04/19/17 15:23 04/19/17 15:23 04/19/17 15:23 04/19/17 15:23 04/19/17 15:10 General appearance: Present: cooperative, A&O X 3, no acute distress, obese, answers questions appropriately - Head Head exam: Present: atraumatic, normocephalic - Eye Eye exam: Present: PERRL, conjuntiva pink, sclera anicteric Pupils: Present: PERRL - Neck Neck exam general surgery: Present: supple, trachea midline. Absent: lymphadenopathy - Respiratory Respiratory exam: Present: CTAB. Absent: accessory muscle use, rales, rhonchi, wheezes - Cardiovascular Cardiovascular exam: Present: RRR, +S1, +S2. Absent: diastolic murmur, gallop, rubs, systolic murmur - GI/Abdominal GI/Abdominal exam: Present: normal bowel sounds, soft, no peritoneal signs. Absent: distended, tenderness - Extremities Exam Extremities exam: Present: warm, radial pulses palpable and symmetrical. Absent : calf tenderness, cyanotic, pedal edema - Neurological Exam Neurological exam: Present: CN II-XII intact, oriented X3, no focal deficits. Absent: pronater drift, facial droop, speech deficit - Skin Skin exam: Present: dry, intact Internal Medicine: Result - Labs CBC & Chem 7: 04/19/17 04:49 04/19/17 03:44 Labs: Short CBC 04/19/17 Range/Units 04:49 WBC 3.3 L (4.3-11.1) K/mcL Hgb 6.4 L D (11.5-15.4) g/dL Hct 19.5 L (35.3-44.9) % Plt Count 95 L (140-400) K/mcL Neutrophils # 2.2 (1.6-8.9) K/mcL BMP 04/19/17 03:44 Sodium 141 Potassium 2.8 L Chloride 111 H Carbon Dioxide 22 L BUN 44 H Creatinine 1.72 H Glucose 132 H Calcium 7.9 L - ABG Interpretation ABG results: PT/INR, D-dimer PT 11.6 Seconds (9.4-12.1) 04/17/17 15:35 - VTE Documentation of Mechanical Device: Intermittent pneumatic compression device Consult Discharge Plan - Plan Referrals: Clifton Kumar DO [Primary Care Provider] - 04/25/17 9:30 am (Please follow up as schedule...)
[2017-04-19] MEDS: Temazepam 15 MG CAPSULE PO SCH (20:05)
[2017-04-20] MEDS: Sodium Bicarbonate 150 MEQ in D5% in Water 1,000 ML IVC SCH (04:20)
[2017-04-20 05:04] LABS: Red Blood Count 2.45 M/mcL (3.82-4.97)
[2017-04-20 05:06] LABS: Hemoglobin 7.4 g/dL (11.5-15.4); Mean Corpuscular HGB Conc 33.6 g/dL (31.6-35.5); Mean Corpuscular Hemoglobin 30.2 pg (28.0-33.3); Mean Corpuscular Volume 89.8 fL (83.0-100.0); Mean Platelet Volume 10.3 fL (9.4-12.4); Red Cell Distribution Width 18.9 % (11.5-14.5)
[2017-04-20 05:09] LABS: Platelet Count 76 K/mcL (140-400)
[2017-04-20 05:15] LABS: Calcium 8.2 mg/dL (8.6-10.3); Magnesium 1.5 mg/dL (1.6-2.6); Potassium 2.8 mEq/L (3.5-5.1)
[2017-04-20] MEDS: Cholecalciferol (D-3) 1,000 UNIT TABLET PO SCH (08:11)
[2017-04-20] MEDS: Venlafaxine XR (24 HR) 150 MG CAP.ER.24H PO SCH (08:11)
[2017-04-20] MEDS: Folic Acid 1 MG TABLET PO SCH (08:11)
[2017-04-20] MEDS: Cyanocobalamin (B-12) 1,000 MCG TABLET PO SCH (08:11)
[2017-04-20] MEDS: Gabapentin 100 MG CAPSULE PO SCH ×3 (08:11→20:11)
[2017-04-20] MEDS ORDERED: *HR* Methotrexate 2.5 MG TABLET PO SCH (09:00)
[2017-04-20] MEDS: Insulin LISPRO 300 UNITS/3 ML VIAL SQ SCH ×4 (09:32→20:08)
[2017-04-20] MEDS: methylPREDNISolone 60 MG in 0.9 % Sodium Chloride 100 ML IVPB SCH (09:32)
--- NOTE | 2017-04-20 11:27 | Event Note ---
Date of Encounter: 04/20/17 Time of Encounter: 11:24 Ms Schilling is a 66 year old patient of Dr Janessa Johnson who was admitted for ELIZABETH on CKD and dehydration. On admission GFR was 14 and Scr 3.36; today GFR 40 and Scr 1.31. ELIZABETH has now resolved and kidney function is actually above baseline at this time. Please notify us if there is a change in kidney function otherwise patient has a f/u appointment with Dr Riddle on Monday. Thank you.
[2017-04-20] MEDS: Nystatin SUSP 5 ML UD.LIQ PO SCH ×3 (13:08→20:11)
[2017-04-20] MEDS ORDERED: 0.9 % Sodium Chloride 250 ML ONE (14:52)
--- NOTE | 2017-04-20 16:19 | Internal Med Progress Note ---
Date of Encounter: 04/20/17 Time of Encounter: 10:30 - Assessment and plan (1) Anemia Current Visit: Yes Status: Acute Assessment and plan: Hgb dropped to 6.4; previously 10. No obvious active bleeding. Patient denies melena. Symptomatic with general weakness. 2 units PRBC ordered. Hemodynamically stable. GI consult. Check occult stool. Monitor H&H, transfuse for Hgb less than 8. Repeat Hgb 7.4; transfuse another unit PRBC. GI updated; possible C-scope this admission. Qualifiers: Anemia type: unspecified type Qualified Code(s): D64.9 - Anemia, unspecified (2) Hypokalemia Current Visit: Yes Status: Acute Assessment and plan: K 2.4; secondary to loose stools and low Mg. Monitor serial CMP and replace PRN. K 2.8, Mg 1.5 on 04/20; repeat CMP at 1700 (3) Crohns disease Current Visit: Yes Status: Acute Assessment and plan: hx Crohn's disease since . Has been on methotrexate for 2 years. Reports 10 -15 BM a day, humira and other medications were prescribed but were not covered by insurance. Stool studies negative. Cont IV steroids. GI following Qualifiers: Gastrointestinal tract location: unspecified location Digestive disease complication type: unspecified complication Qualified Code(s): K50.919 - Crohn 's disease, unspecified, with unspecified complications (4) Kriel-dw-gjafifh kidney injury Current Visit: Yes Status: Acute Assessment and plan: secondary excessive GI losses. Renal function improving with IV fluids. Avoid nephrotoxic agents if possible. Monitor repeat CMP. Qualifiers: Acute renal failure type: unspecified Chronic kidney disease stage: unspecified stage Qualified Code(s): N17.9 - Acute kidney failure, unspecified ; N18.9 - Chronic kidney disease, unspecified; N18.9 - Chronic kidney disease, unspecified (5) Orthostasis Current Visit: Yes Status: Acute Assessment and plan: Noted to be positive for orthostatic hypotension. concern for drug induced hypotension in addition to the orthostasis as pt's BP has been appropriately controlled with half the dose of BB and holding home dose of Lisinopril . Pt clinically improving with adjustment in home medications. Consider adding Midodrine prior to discharge if symptoms persist (6) Nausea and vomiting Current Visit: Yes Status: Acute Assessment and plan: normal anion gap metabolic acidosis likely secondary to GI losses from the n/v. Appears to be improving on 04/19. Continue IV fluids. Monitor repeat CMP. Qualifiers: Vomiting Intractability: non-intractable Qualified Code(s): R11.2 - Nausea with vomiting, unspecified (7) DVT prophylaxis Current Visit: Yes Status: Acute Assessment and plan: SCD - Subjective Interval history: Seen and examined at bedside; says she is still weak and tired but overall improved. - Constitutional Vitals: Temp Pulse Resp BP Pulse Ox 99.5 F 84 17 124/70 92 04/20/17 15:23 04/20/17 15:23 04/20/17 15:23 04/20/17 15:23 04/20/17 15:23 General appearance: Present: cooperative, A&O X 3, no acute distress, obese, answers questions appropriately - Head Head exam: Present: atraumatic, normocephalic - Eye Eye exam: Present: PERRL, conjuntiva pink, sclera anicteric Pupils: Present: PERRL - Neck Neck exam general surgery: Present: supple, trachea midline. Absent: lymphadenopathy - Respiratory Respiratory exam: Present: CTAB. Absent: accessory muscle use, rales, rhonchi, wheezes - Cardiovascular Cardiovascular exam: Present: RRR, +S1, +S2. Absent: diastolic murmur, gallop, rubs, systolic murmur - GI/Abdominal GI/Abdominal exam: Present: normal bowel sounds, soft, no peritoneal signs. Absent: distended, tenderness - Extremities Exam Extremities exam: Present: warm, radial pulses palpable and symmetrical. Absent : calf tenderness, cyanotic, pedal edema - Neurological Exam Neurological exam: Present: CN II-XII intact, oriented X3, no focal deficits. Absent: pronater drift, facial droop, speech deficit - Skin Skin exam: Present: dry, intact Internal Medicine: Result - Labs CBC & Chem 7: 04/20/17 04:48 04/20/17 04:48 Labs: Short CBC 04/20/17 Range/Units 04:48 WBC 2.0 L (4.3-11.1) K/mcL Hgb 7.4 L (11.5-15.4) g/dL Hct 22.0 L (35.3-44.9) % Plt Count 76 L (140-400) K/mcL BMP 04/19/17 04/20/17 16:51 04:48 Sodium 141 Potassium 3.2 L 2.8 L Chloride 105 Carbon Dioxide 29 BUN 24 H Creatinine 1.31 H Glucose 130 H Calcium 8.2 L - ABG Interpretation ABG results: PT/INR, D-dimer PT 11.6 Seconds (9.4-12.1) 04/17/17 15:35 - VTE Documentation of Mechanical Device: Intermittent pneumatic compression device Consult Discharge Plan - Plan Referrals: Clifton Kumar DO [Primary Care Provider] - 04/25/17 9:30 am (Please follow up as schedule...)
[2017-04-20] MEDS: Temazepam 15 MG CAPSULE PO SCH (20:11)
[2017-04-20 20:33] LABS: Calcium 8.7 mg/dL (8.6-10.3); Magnesium 1.8 mg/dL (1.6-2.6)
[2017-04-21 00:08] LABS: Hematocrit 26.2 % (35.3-44.9); Hemoglobin 8.7 g/dL (11.5-15.4)
[2017-04-21 03:44] LABS: Hemoglobin 8.4 g/dL (11.5-15.4)
[2017-04-21 03:45] LABS: Hematocrit 25.3 % (35.3-44.9); Mean Corpuscular HGB Conc 33.2 g/dL (31.6-35.5); Mean Corpuscular Hemoglobin 29.9 pg (28.0-33.3); Mean Platelet Volume 10.6 fL (9.4-12.4); Platelet Count 66 K/mcL (140-400); Red Blood Count 2.81 M/mcL (3.82-4.97); Red Cell Distribution Width 18.2 % (11.5-14.5)
[2017-04-21 04:07] LABS: Calcium 8.6 mg/dL (8.6-10.3); Magnesium 1.7 mg/dL (1.6-2.6); Potassium 3.7 mEq/L (3.5-5.1)
[2017-04-21] MEDS ORDERED: Melatonin 3 MG TABLET PO ONE (04:10)
[2017-04-21] MEDS: Sodium Bicarbonate 150 MEQ in D5% in Water 1,000 ML IVC SCH ×2 (07:30→09:25)
[2017-04-21] MEDS: Insulin LISPRO 300 UNITS/3 ML VIAL SQ SCH ×4 (08:16→21:30)
[2017-04-21] MEDS: Folic Acid 1 MG TABLET PO SCH (09:21)
[2017-04-21] MEDS: Cholecalciferol (D-3) 1,000 UNIT TABLET PO SCH (09:22)
[2017-04-21] MEDS: methylPREDNISolone 60 MG in 0.9 % Sodium Chloride 100 ML IVPB SCH (09:22)
[2017-04-21] MEDS: Cyanocobalamin (B-12) 1,000 MCG TABLET PO SCH (09:22)
[2017-04-21] MEDS: Nystatin SUSP 5 ML UD.LIQ PO SCH ×3 (09:22→17:17)
[2017-04-21] MEDS: Venlafaxine XR (24 HR) 150 MG CAP.ER.24H PO SCH (09:22)
[2017-04-21] MEDS: Gabapentin 100 MG CAPSULE PO SCH ×3 (09:22→20:10)
--- NOTE | 2017-04-21 12:07 | Internal Med Progress Note ---
Date of Encounter: 04/21/17 Time of Encounter: 12:04 - Assessment and plan (1) Anemia Current Visit: Yes Status: Acute Assessment and plan: Hgb dropped to 6.4; previously 10. No obvious active bleeding. Patient denies melena. Symptomatic with general weakness. 2 units PRBC ordered. Hemodynamically stable. GI consult. Check occult stool. Monitor H&H, transfuse for Hgb less than 8. Repeat Hgb 7.4; transfuse another unit PRBC. GI updated; possible C-scope this admission. Also now with pancytopenia Oncology has been consulted, recommendations appreciated. Qualifiers: Anemia type: unspecified type Qualified Code(s): D64.9 - Anemia, unspecified (2) Orthostasis Current Visit: Yes Status: Acute Assessment and plan: Positive for orthostatic hypotension. Possibly anemia related concern for drug induced hypotension in addition to the orthostasis as pt's BP has been appropriately controlled with half the dose of BB and holding home dose of Lisinopril . Pt clinically improving with adjustment in home medications. Consider adding Midodrine prior to discharge if symptoms persist (3) Exigb-zb-spwfmfz kidney injury Current Visit: Yes Status: Resolved Assessment and plan: secondary excessive GI losses. Patient back at baseline today Qualifiers: Acute renal failure type: unspecified Chronic kidney disease stage: unspecified stage Qualified Code(s): N17.9 - Acute kidney failure, unspecified ; N18.9 - Chronic kidney disease, unspecified; N18.9 - Chronic kidney disease, unspecified (4) Crohns disease Current Visit: Yes Status: Acute Assessment and plan: hx Crohn's disease since . Has been on methotrexate for 2 years. Reports 10 -15 BM a day, humira and other medications were prescribed but were not covered by insurance. Stool studies negative. Cont IV steroids. GI following Qualifiers: Gastrointestinal tract location: unspecified location Digestive disease complication type: unspecified complication Qualified Code(s): K50.919 - Crohn 's disease, unspecified, with unspecified complications (5) Hypokalemia Current Visit: Yes Status: Acute Assessment and plan: K 2.4; secondary to loose stools and low Mg. Monitor serial CMP and replace PRN. K 2.8, Mg 1.5 on 04/20; repeat CMP at 1700 (6) Nausea and vomiting Current Visit: Yes Status: Acute Assessment and plan: normal anion gap metabolic acidosis likely secondary to GI losses from the n/v. Appears to be improving on 04/19. Continue IV fluids. Monitor repeat CMP. Qualifiers: Vomiting Intractability: non-intractable Qualified Code(s): R11.2 - Nausea with vomiting, unspecified (7) DVT prophylaxis Current Visit: Yes Status: Acute Assessment and plan: SCD - Subjective Interval history: Patient states she is still tired, still same symptoms though slightly improved. Denies dizziness at rest, denies fevers/chlls, n.v. Needed additional transfusion yesterday. - Constitutional Vitals: Temp Pulse Resp BP Pulse Ox 97.6 F 69 14 109/62 93 04/21/17 11:28 04/21/17 11:28 04/21/17 11:28 04/21/17 11:04/21/17 11:28 General appearance: Present: cooperative, A&O X 3, no acute distress, obese, answers questions appropriately - Head Head exam: Present: atraumatic, normocephalic - Eye Eye exam: Present: PERRL, conjuntiva pink, sclera anicteric Pupils: Present: PERRL - Neck Neck exam general surgery: Present: supple, trachea midline. Absent: lymphadenopathy - Respiratory Respiratory exam: Present: CTAB. Absent: accessory muscle use, rales, rhonchi, wheezes - Cardiovascular Cardiovascular exam: Present: RRR, +S1, +S2. Absent: diastolic murmur, gallop, rubs, systolic murmur - GI/Abdominal GI/Abdominal exam: Present: normal bowel sounds, soft, no peritoneal signs. Absent: distended, tenderness - Extremities Exam Extremities exam: Present: warm, radial pulses palpable and symmetrical. Absent : calf tenderness, cyanotic, pedal edema - Neurological Exam Neurological exam: Present: CN II-XII intact, oriented X3, no focal deficits. Absent: pronater drift, facial droop, speech deficit - Skin Skin exam: Present: dry, intact Internal Medicine: Result - Labs CBC & Chem 7: 04/21/17 03:31 04/21/17 03:31 Labs: Short CBC 04/20/17 04/21/17 Range/Units 23:57 03:31 WBC 2.0 L (4.3-11.1) K/mcL Hgb 8.7 L 8.4 L (11.5-15.4) g/dL Hct 26.2 L 25.3 L (35.3-44.9) % Plt Count 66 L (140-400) K/mcL BMP 04/20/17 04/21/17 19:54 03:31 Sodium 141 139 Potassium 4.0 D 3.7 Chloride 103 102 Carbon Dioxide 33 H 30 H BUN 20 20 Creatinine 1.34 H 1.27 H Glucose 183 H 152 H Calcium 8.7 8.6 - ABG Interpretation ABG results: PT/INR, D-dimer PT 11.6 Seconds (9.4-12.1) 04/17/17 15:35 - VTE Documentation of Mechanical Device: Intermittent pneumatic compression device Consult Discharge Plan - Plan Referrals: Clifton Kumar DO [Primary Care Provider] - 04/25/17 9:30 am (Please follow up as schedule...)
--- NOTE | 2017-04-21 13:35 | Oncology Inp Consult Note ---
<Eden Lucas L - Last Filed: 04/21/17 18:20> Date of Encounter: 04/21/17 Time of Encounter: 13:35 Assessment and Plan (1) Anemia Status: Acute Assessment and plan: Pancytopenic at present time. Hgb 8.4 s/p 2 units PRBC (6.4 on admission). WBC 2.0, platelets 66. Iron 137, 39% saturations, ferritin 214. MCV and MCH normal. Bili normal, calcium normal. We will also check B12, folate, haptoglobin, LDH, Julianna, SPEP, free light chains and peripheral blood smear for further anemia workup. She is taking folic acid supplement. Anemia on admission may be secondary to acute bleed on already chronic anemia secondary to CKD, pending further workup. She does report decreased appetite with 20 pound weight loss over the past 1.5 months. Continue to monitor labs and CBC with differential daily. Leukopenia is new, she does have mild anemia present on trending lab work back to 2013 with average hemoglobin about 10.6-11 likely secondary to anemia of chronic disease/CKD, thrombocytopenia has been present on trending lab work dating back to 2012, platelet arnaldo at 98 and 2014. Pancytopenia may be secondary to autoimmune related given her diagnosis of Chrohns, will also assess DARLYN and TTG IgA Will also order US abdomen to assess liver/spleen. ELIZABETH on CKD improved back to baseline, GFR 42. Reviewed GI recommendations. Checking fecal calpro for potential Crohn's flare and stool culture for C. difficile. She does report her symptoms have slightly improved since admission with the addition of IV steroids. GI May consider C- scope. Mouth lesions-mainly on inner part of lower lip-may be secondary to chrohns. We will arrange for continued hematology follow-up at our clinic. Please refer to Dr. Mitchell's attestation below for further details. Qualifiers: Anemia type: unspecified type Qualified Code(s): D64.9 - Anemia, unspecified - Data of Consult Patient: new to practice Consult date: 04/21/17 Requesting Physician: Lorelei Sarmiento MD Primary Care Provider: Clifton Kumar, - Consult Narrative Reason for consult: Pancytopenia History of present illness: Ms. Schilling is a 66 year old female with past medical history significant for diabetes, hypertension and Crohn's disease. She presented to the ER on 2/12/ 2018 with complaints of increased weakness, presyncope, decreased appetite with resultant 20 pound weight loss since the beginning of March, multiple falls, disequilibrium and lightheadedness . She was diagnosed with Crohn disease in the 1979's and had a hemicolectomy in 1981. She has been on methotrexate for the past 2 years. She was tried on asacol in the past and humira was prescribed but she was unable to afford due to high copay. She reports 10-15 BMs a day which is normal for her. She states she had some bleeding a while ago but none recently. She has also experienced intermittent nausea and vomiting over the past month, she denies hematemesis or dysphagia. She had a colonoscopy in October 2016 which showed ileum normal, erythematous mucosa in rectum and sigmoid colon, pathology chronic inflammation. EGD in 2012 showed medium sized hiatal hernia, gastritis. She denies regular NSAID/ASA use or anticoagulants. ELIZABETH on admission which has resolved during hospital stay. She denies alcohol use, she has never been a smoker. Past Med Surg Social Fam HX - Past Medical History Medical history: diabetes, GERD, glaucoma, hypertension, renal disease Psychiatric history: no psych history - Social History Smoking Status: Never smoker Smokeless Tobacco Status: No Alcohol use: none Drug use: none - Family History Father Family Member Ethnicity: Non- Living Status: Age at : 73 Hx Family Cancer: Yes (lung cancer) Mother Age: 88 Family Member Ethnicity: Non- Living Status: Still Living Medications and Allergies Allopurinol [Zyloprim 300 MG] 300 mg PO DAILY 04/14/17 [History] Cholecalciferol (D-3) [Vitamin D] 2,000 unit PO DAILY 04/14/17 [History] Cyanocobalamin (Vitamin B-12) [Vitamin B-12] 1,000 mcg PO DAILY 04/14/17 [ History] Folic Acid 1 mg PO DAILY 04/14/17 [History] Gabapentin [Neurontin] 600 mg PO TID 04/14/17 [History] GlipiZIDE [Glipizide ER] 10 mg PO BID 04/14/17 [History] HYDROcodone/Acet 5/325 mg [Channing 5-325 mg] 1 tab PO Q6H PRN 4 Days #14 tab 04/14 [Rx] Lisinopril [Zestril] 20 mg PO BID 04/14/17 [History] Methotrexate 25 mg SQ TH 04/14/17 [History] Metoprolol Tartrate 50 mg PO BID 04/14/17 [History] Omeprazole [PriLOSEC] 20 mg PO DAILY 04/14/17 [History] Pioglitazone HCl 30 mg PO DAILY 04/14/17 [History] Temazepam [Restoril] 30 mg PO HS 04/14/17 [History] Venlafaxine HCl [Venlafaxine HCl ER] 150 mg PO QAM 04/14/17 [History] Venlafaxine [Effexor] 75 mg PO QPM 04/14/17 [History] 3 Allergy/AdvReac Type Severity Reaction Status Date / Time No Known Allergies Allergy Verified 04/17/17 14:37 Constitutional: Present: anorexia, fatigue, frequent falls, headache(s), weakness, weight loss. Absent: chills, fever(s) Nose, mouth and throat: Present: mouth lesions Cardiovascular: Absent: chest pain, irregular heart rhythm, palpitations Respiratory: Absent: cough Additional comments: SOB present prior to admission which has since resolved. Gastrointestinal: Present: as per HPI Genitourinary: Absent: dysuria, hematuria Musculoskeletal: Present: muscle weakness Integumentary: Absent: skin ulcer, wounds Neurological: Present: frequent falls. Absent: focal weakness, numbness, tingling Psychiatric: Present: change in appetite Hematologic/Lymphatic: Absent: easy bleeding, lymphadenopathy Oncology - Exam - Constitutional Vitals: Temp Pulse Resp BP Pulse Ox 97.6 F 69 14 109/62 93 04/21/17 11:28 04/21/17 11:28 04/21/17 11:28 04/21/17 11:28 04/21/17 11:28 - Head Head exam: Present: atraumatic - Respiratory Respiratory exam: Present: CTAB - Cardiovascular Cardiovascular exam: Present: RRR, +S1, +S2 - GI/Abdominal GI/Abdominal exam: Present: normal bowel sounds, soft. Absent: guarding, rebound, tenderness - Extremities Exam Extremities exam: Present: normal inspection. Absent: calf tenderness, pedal edema - Neurological Exam Neurological exam: Present: alert, oriented X3, no focal deficits, strengths equal and symetr throughout - Psychiatric Psychiatric exam: Present: normal affect, normal mood - Skin Skin exam: Present: pallor, warm Oncology - Results Labs: Short CBC 04/20/17 04/21/17 Range/Units 23:57 03:31 WBC 2.0 L (4.3-11.1) K/mcL Hgb 8.7 L 8.4 L (11.5-15.4) g/dL Hct 26.2 L 25.3 L (35.3-44.9) % Plt Count 66 L (140-400) K/mcL [facility] 04/20/17 04/21/17 19:54 03:31 Sodium 141 139 Potassium 4.0 D 3.7 Chloride 103 102 Carbon Dioxide 33 H 30 H BUN 20 20 Creatinine 1.34 H 1.27 H Glucose 183 H 152 H Calcium 8.7 8.6 Consult Discharge Plan - Plan Referrals: Clifton Kumar DO [Primary Care Provider] - 04/25/17 9:30 am (Please follow up as schedule...) <Sommer Mitchell S - Last Filed: 04/22/17 11:55> Date of Encounter: 04/22/17 - Data of Consult Requesting Physician: Lorelei Sarmiento MD Primary Care Provider: Clifton Kuamr, - Consult Narrative History of present illness: Ms. Schilling is a 66 year old female Oncology - Exam - Constitutional Vitals: Temp Pulse Resp BP Pulse Ox 98.6 F 74 14 94/55 97 04/22/17 10:38 04/22/17 10:38 04/22/17 10:38 04/22/17 10:38 04/22/17 10:38 Oncology - Results Labs: Short CBC 04/22/17 Range/Units 08:02 WBC 3.5 L D (4.3-11.1) K/mcL Hgb 8.5 L (11.5-15.4) g/dL Hct 26.3 L (35.3-44.9) % Plt Count 54 L (140-400) K/mcL Neutrophils # 2.2 (1.6-8.9) K/mcL [facility] 04/22/17 08:02 Sodium 142 Potassium 3.3 L Chloride 99 Carbon Dioxide 37 H BUN 19 Creatinine 1.28 H Glucose 108 H Calcium 8.5 L - Attending Attestation 1. Admitted with acute exacerbation of Crohn's disease and increased diarrhea. Started on increased dose of steroids methylprednisolone 60 mg IV daily 2. Chronic kidney disease stage III. On admission creatinine was high around likely from dehydration from diarrhea. Creatinine improved to 1.25 3. Pancytopenia worsening anemia.iron levels, B12, folate and TSH normal. Serum protein electrophoresis and light chains pending Her hemoglobin was normal in 2016 around 12. Progressively dropped to nine range since June 2015 She had hemicolectomy in 1981. She has been on methotrexate for since 03/21. she is also on Remicade likely Pancytopenia is second-rate to methotrexate and the time line correlate. Recommend to stop methotrexate. Once her anemia improves may start methotrexate at a lower dose. Currently at 25 mg weekly. May have to cut the dose to 12.5 mg weekly. Methotrexate is cleared through kidney and during renal failure methotrexate can cause profound Pancytopenia 4. Crohn's disease. Notice G.I. consult Colonoscopy: 10/20 ileum normal, erythematous mucosa in rectum and sigmoid colon , pathology chronic inflammation EGD: 2012 medium sized hiatal hernia, gastritis
--- NOTE | 2017-04-21 15:16 | Gastroenterology Progress Note ---
Date of Encounter: 04/21/17 Time of Encounter: 12:00 - Assessment and plan (1) Crohns disease Current Visit: Yes Status: Acute Assessment and plan: Pt has improved symptoms on steroids, would advise current dose then po prednisone taper at discharge. GI panel negative, awaiting stool calprotectin. Qualifiers: Gastrointestinal tract location: unspecified location Digestive disease complication type: unspecified complication Qualified Code(s): K50.919 - Crohn 's disease, unspecified, with unspecified complications (2) Anemia Current Visit: Yes Status: Acute Assessment and plan: Iron and ferritin normal. She denies any bleeding. She has been transfused, Hgb is 8.4 today. Monitor H&H. She has pancytopenia would recommend hematology consult as she was on methotrexate as an out patient for Crohn's disease. Discussed with Dr Pickard, no plans for endoscopy at this time. Will reassess if Hgb continues to drop. Qualifiers: Anemia type: unspecified type Qualified Code(s): D64.9 - Anemia, unspecified - Time Spent With Patient Total time spent is greater than 50% in coordination of care (as documented) at patient's floor/unit and/or counseling patient: - Subjective Interval history: Pt is awake and sitting on the side of the bed eating lunch. She reports abdominal pain and diarrhea have improved after steroids were started. She denies any nausea or vomiting. She denies bloody or tarry stools. She denies fever. She has continued orthostatic hypotension and dizziness with standing. - Constitutional Vitals: Temp Pulse Resp BP Pulse Ox 97.6 F 69 14 109/62 93 04/21/17 11:28 04/21/17 11:28 04/21/17 11:28 04/21/17 11:28 04/21/17 11:28 Exam: CONSTITUTIONAL:~alert, no acute distress.~HEAD:~normocephalic.~EYES:~no jaundice.~NECK:~no obvious swelling.~HEART:~regular rate and rhythm, no murmurs. ~LUNGS:~bilateral good air entry.~ABDOMEN:~non distended, soft, non tender, no masses palpable, no organomegaly, scar well healed, obese.~RECTAL EXAM:~ Deferred.~EXTREMITIES:~no clubbing, cyanosis or edema.~SKIN:~no stigmata of chronic liver disease, pallor noted.~NEUROLOGIC:~no obvious focal defect.~~~~ Results - Labs CBC & Chem 7: 04/21/17 03:31 04/21/17 03:31 Labs: Last Result Calcium 8.6 mg/dL (8.6-10.3) 04/21/17 03:31 Iron 137 mcg/dL (50-170) 04/19/17 11:49 % Saturation 39 % (15-50) 04/19/17 11:49 Transferrin 248 mg/dL (203-362) 04/19/17 11:49 Ferritin 215 ng/ml (10-120) H 04/19/17 11:49 Troponin I < 0.03 ng/mL (< 0.04) 04/18/17 00:22 Urine Opiates Screen Positive ng/mL (Bfjtpb=116) H 04/17/17 21:47 Entire Visit Hgb 8.4 g/dL (11.5-15.4) L 04/21/17 03:31 Hct 25.3 % (35.3-44.9) L 04/21/17 03:31 PT 11.6 Seconds (9.4-12.1) 04/17/17 15:35 Ferritin 215 ng/ml (10-120) H 04/19/17 11:49 Total Bilirubin 0.5 mg/dL (0.3-1.0) 04/17/17 15:39 AST 17 Units/L (13-39) 04/17/17 15:39 ALT 11 Units/L (7-52) 04/17/17 15:39 - ABG ABG results: PT/INR, D-dimer PT 11.6 Seconds (9.4-12.1) 04/17/17 15:35 - VTE Documentation of Mechanical Device: Intermittent pneumatic compression device Consult Discharge Plan - Plan Referrals: Clifton Kumar DO [Primary Care Provider] - 04/25/17 9:30 am (Please follow up as schedule...)
[2017-04-21 19:25] LABS: Thyroid Stimulating Hormone 0.976 mcIU/mL (0.340-5.600)
[2017-04-21 19:35] LABS: Folate 8.1 ng/mL (3.0-16.0)
[2017-04-21] MEDS: Temazepam 15 MG CAPSULE PO SCH (20:10)
[2017-04-21] MEDS: Melatonin 3 MG TABLET PO SCH (20:42)
[2017-04-22] MEDS: Magic Mouthwash 10 ML UD Cup PO SCH ×5 (00:10→21:56)
[2017-04-22] MEDS: Sodium Bicarbonate 150 MEQ in D5% in Water 1,000 ML IVC SCH ×3 (01:12→16:05)
[2017-04-22] MEDS: Ondansetron 4 MG/2 ML VIAL IVP PRN (04:45)
[2017-04-22] MEDS: Insulin LISPRO 300 UNITS/3 ML VIAL SQ SCH ×4 (07:40→21:46)
--- NOTE | 2017-04-22 07:58 | Internal Med Progress Note ---
Date of Encounter: 04/22/17 Time of Encounter: 07:56 - Assessment and plan (1) Anemia Current Visit: Yes Status: Acute Assessment and plan: Hgb dropped to 6.4; previously 10. No obvious active bleeding. Patient denies melena. Symptomatic with general weakness. 2 units PRBC ordered. Hemodynamically stable. GI consult. Check occult stool. Monitor H&H, transfuse for Hgb less than 8. Repeat Hgb 7.4; transfuse PRBC 04/19 and 04/20. CBC this AM pending Also now with pancytopenia Oncology and GI following, recommendations appreciated. Qualifiers: Anemia type: unspecified type Qualified Code(s): D64.9 - Anemia, unspecified (2) Orthostasis Current Visit: Yes Status: Acute Assessment and plan: Positive for orthostatic hypotension. Possibly anemia related concern for drug induced hypotension in addition to the orthostasis as pt's BP has been appropriately controlled with half the dose of BB and holding home dose of Lisinopril . Pt clinically improving with adjustment in home medications. Consider adding Midodrine prior to discharge if symptoms persist Repeat orthostats today. (3) Yuqub-pi-ccuhckt kidney injury Current Visit: Yes Status: Resolved Assessment and plan: secondary excessive GI losses. Patient back at baseline today Qualifiers: Acute renal failure type: unspecified Chronic kidney disease stage: unspecified stage Qualified Code(s): N17.9 - Acute kidney failure, unspecified ; N18.9 - Chronic kidney disease, unspecified; N18.9 - Chronic kidney disease, unspecified (4) Crohns disease Current Visit: Yes Status: Acute Assessment and plan: hx Crohn's disease since 1980s. Has been on methotrexate for 2 years. Reports 10 -15 BM a day, humira and other medications were prescribed but were not covered by insurance. Stool studies negative. Cont IV steroids. GI following Qualifiers: Gastrointestinal tract location: unspecified location Digestive disease complication type: unspecified complication Qualified Code(s): K50.919 - Crohn 's disease, unspecified, with unspecified complications (5) Hypokalemia Current Visit: Yes Status: Acute Assessment and plan: Replace as needed. (6) Nausea and vomiting Current Visit: Yes Status: Acute Qualifiers: Vomiting Intractability: non-intractable Qualified Code(s): R11.2 - Nausea with vomiting, unspecified (7) DVT prophylaxis Current Visit: Yes Status: Acute Assessment and plan: SCD (8) Diabetes Current Visit: Yes Status: Acute Assessment and plan: Diabetic diet, ISS, monitor closely as patient now on steroids. Qualifiers: Diabetes mellitus type: type 2 Diabetes mellitus complication status: without complication Diabetes mellitus snf insulin use: without termite exterminator use Qualified Code(s): E11.9 - Type 2 diabetes mellitus without complications - Subjective Interval history: No acute events overnight. She had about 6 BM yesterday which is improved from usually 15. Denies CP shortness of breath n/v. - Constitutional Vitals: Temp Pulse Resp BP Pulse Ox 98.7 F 51 14 146/65 89 04/22/17 07:11 04/22/17 07:11 04/22/17 07:11 04/22/17 07:11 04/22/17 07:11 General appearance: Present: cooperative, A&O X 3, no acute distress, obese, answers questions appropriately - Head Head exam: Present: atraumatic, normocephalic - Eye Eye exam: Present: PERRL, conjuntiva pink, sclera anicteric Pupils: Present: PERRL - Neck Neck exam general surgery: Present: supple, trachea midline. Absent: lymphadenopathy - Respiratory Respiratory exam: Present: CTAB. Absent: accessory muscle use, rales, rhonchi, wheezes - Cardiovascular Cardiovascular exam: Present: RRR, +S1, +S2. Absent: diastolic murmur, gallop, rubs, systolic murmur - GI/Abdominal GI/Abdominal exam: Present: normal bowel sounds, soft, no peritoneal signs. Absent: distended, tenderness - Extremities Exam Extremities exam: Present: warm, radial pulses palpable and symmetrical. Absent : calf tenderness, cyanotic, pedal edema - Neurological Exam Neurological exam: Present: CN II-XII intact, oriented X3, no focal deficits. Absent: pronater drift, facial droop, speech deficit - Skin Skin exam: Present: dry, intact Internal Medicine: Result - Labs CBC & Chem 7: 04/21/17 03:31 04/21/17 03:31 - ABG Interpretation ABG results: PT/INR, D-dimer PT 11.6 Seconds (9.4-12.1) 04/17/17 15:35 - VTE Documentation of Mechanical Device: Intermittent pneumatic compression device Consult Discharge Plan - Plan Referrals: Clifton Kumar DO [Primary Care Provider] - 04/25/17 9:30 am (Please follow up as schedule...)
[2017-04-22 08:09] LABS: Red Cell Distribution Width 17.7 % (11.5-14.5)
[2017-04-22 08:11] LABS: Basophils % 0.3 %; Eosinophils # 0.1 K/mcL (0.0-0.6); Hematocrit 26.3 % (35.3-44.9); Hemoglobin 8.5 g/dL (11.5-15.4); Immature Granulocytes % 0.6 % (0-4); Immature Platelets 1.8 % (1.1-6.1); Lymphocytes # 1.1 K/mcL (0.6-4.6); Lymphocytes % 31.4 %; Mean Corpuscular HGB Conc 32.3 g/dL (31.6-35.5); Mean Corpuscular Hemoglobin 29.9 pg (28.0-33.3); Mean Corpuscular Volume 92.6 fL (83.0-100.0); Mean Platelet Volume 10.8 fL (9.4-12.4); Monocytes # 0.1 K/mcL (0.0-1.3); Monocytes % 2.8 %; Neutrophils # 2.2 K/mcL (1.6-8.9); Red Blood Count 2.84 M/mcL (3.82-4.97); Segmented Neutrophils % 62.9 %
[2017-04-22 08:24] LABS: Calcium 8.5 mg/dL (8.6-10.3); Potassium 3.3 mEq/L (3.5-5.1)
[2017-04-22 08:46] LABS: Platelet Count 54 K/mcL (140-400)
[2017-04-22] MEDS: Folic Acid 1 MG TABLET PO SCH (10:26)
[2017-04-22] MEDS: Gabapentin 100 MG CAPSULE PO SCH ×3 (10:26→21:46)
[2017-04-22] MEDS: Venlafaxine XR (24 HR) 150 MG CAP.ER.24H PO SCH (10:27)
[2017-04-22] MEDS: Cyanocobalamin (B-12) 1,000 MCG TABLET PO SCH (10:27)
[2017-04-22] MEDS: Cholecalciferol (D-3) 1,000 UNIT TABLET PO SCH (10:27)
[2017-04-22] MEDS: methylPREDNISolone 60 MG in 0.9 % Sodium Chloride 100 ML IVPB SCH (10:29)
[2017-04-22] MEDS: Temazepam 15 MG CAPSULE PO SCH (21:46)
[2017-04-22] MEDS: Melatonin 3 MG TABLET PO SCH (21:46)
[2017-04-23] MEDS: Sodium Bicarbonate 150 MEQ in D5% in Water 1,000 ML IVC SCH ×2 (04:42→19:31)
[2017-04-23 05:13] LABS: Immature Granulocytes % 0.3 % (0-4); Mean Corpuscular Hemoglobin 29.7 pg (28.0-33.3); Red Cell Distribution Width 17.4 % (11.5-14.5)
[2017-04-23 05:15] LABS: Eosinophils % 1.3 %; Hematocrit 25.9 % (35.3-44.9); Hemoglobin 8.3 g/dL (11.5-15.4); Lymphocytes # 0.8 K/mcL (0.6-4.6); Lymphocytes % 27.2 %; Mean Corpuscular Volume 92.8 fL (83.0-100.0); Mean Platelet Volume 11.2 fL (9.4-12.4); Monocytes # 0.1 K/mcL (0.0-1.3); Monocytes % 4.7 %; Red Blood Count 2.79 M/mcL (3.82-4.97); Segmented Neutrophils % 66.5 %
[2017-04-23 05:17] LABS: Platelet Count 41 K/mcL (140-400)
[2017-04-23 05:35] LABS: Calcium 8.3 mg/dL (8.6-10.3); Potassium 2.7 mEq/L (3.5-5.1)
[2017-04-23] MEDS: Insulin LISPRO 300 UNITS/3 ML VIAL SQ SCH ×4 (08:01→22:16)
[2017-04-23] MEDS: Cyanocobalamin (B-12) 1,000 MCG TABLET PO SCH (08:08)
[2017-04-23] MEDS: Gabapentin 100 MG CAPSULE PO SCH ×3 (08:08→20:21)
[2017-04-23] MEDS: Folic Acid 1 MG TABLET PO SCH (08:09)
[2017-04-23] MEDS: Venlafaxine XR (24 HR) 150 MG CAP.ER.24H PO SCH (08:09)
[2017-04-23] MEDS: Cholecalciferol (D-3) 1,000 UNIT TABLET PO SCH (08:09)
[2017-04-23] MEDS: methylPREDNISolone 60 MG in 0.9 % Sodium Chloride 100 ML IVPB SCH (08:10)
[2017-04-23] MEDS: Magic Mouthwash 10 ML UD Cup PO SCH ×4 (08:12→20:22)
--- NOTE | 2017-04-23 08:20 | Internal Med Progress Note ---
Date of Encounter: 04/23/17 Time of Encounter: 08:18 - Assessment and plan (1) Anemia Current Visit: Yes Status: Acute Assessment and plan: Hgb dropped to 6.4; previously 10. No obvious active bleeding. Patient denies melena. Symptomatic with general weakness. 2 units PRBC given (04/19, 04/20). Hemodynamically stable. Monitor H&H, Transfuse for Hgb less than 8. Also now with pancytopenia, likely from MTX Oncology and GI following, recommendations appreciated. - methotrexate held Qualifiers: Anemia type: unspecified type Qualified Code(s): D64.9 - Anemia, unspecified (2) Orthostasis Current Visit: Yes Status: Acute Assessment and plan: Positive for orthostatic hypotension. Possibly anemia related concern for drug induced hypotension in addition to the orthostasis as pt's BP has been appropriately controlled with half the dose of BB and holding home dose of Lisinopril . Pt clinically improving with adjustment in home medications. Consider adding Midodrine prior to discharge if symptoms persist Repeat orthostats today. (3) Agcmq-be-dltmlfh kidney injury Current Visit: Yes Status: Resolved Assessment and plan: secondary excessive GI losses. Patient back at baseline today Qualifiers: Acute renal failure type: unspecified Chronic kidney disease stage: unspecified stage Qualified Code(s): N17.9 - Acute kidney failure, unspecified ; N18.9 - Chronic kidney disease, unspecified; N18.9 - Chronic kidney disease, unspecified (4) Crohns disease Current Visit: Yes Status: Acute Assessment and plan: hx Crohn's disease since 1980s. Has been on methotrexate for 2 years. Reports 10 -15 BM a day, humira and other medications were prescribed but were not covered by insurance. Stool studies negative. Cont IV steroids. GI following Qualifiers: Gastrointestinal tract location: unspecified location Digestive disease complication type: unspecified complication Qualified Code(s): K50.919 - Crohn 's disease, unspecified, with unspecified complications (5) Hypokalemia Current Visit: Yes Status: Acute Assessment and plan: Replace as needed. 04/23 worsening BMs overnight and potassium 2.7 Will replace cautiously as patient does have chronic kidney disease (6) Nausea and vomiting Current Visit: Yes Status: Acute Assessment and plan: normal anion gap metabolic acidosis likely secondary to GI losses from the n/v. Appears to be improving on 04/19. Qualifiers: Vomiting Intractability: non-intractable Qualified Code(s): R11.2 - Nausea with vomiting, unspecified (7) Diabetes Current Visit: Yes Status: Acute Assessment and plan: Diabetic diet, ISS, monitor closely as patient now on steroids. Qualifiers: Diabetes mellitus type: type 2 Diabetes mellitus complication status: without complication Diabetes mellitus mcc insulin use: without mcc use Qualified Code(s): E11.9 - Type 2 diabetes mellitus without complications (8) Liver cirrhosis Current Visit: Yes Status: Acute Assessment and plan: Suggestive on abdominal ultrasound. Also has splenomegaly suggested from portal hypertension. Appreciate GI input on this. In the mean time, will order CMP, hepatitis panel. She denies history of IVDA, unsanitary tattoos. She does state she had one transfusion in the 80s but unsure of which year specifically. She denies abdominal pain. Qualifiers: Hepatic cirrhosis type: unspecified hepatic cirrhosis Ascites presence: without ascites Qualified Code(s): K74.60 - Unspecified cirrhosis of liver (9) DVT prophylaxis Current Visit: Yes Status: Acute Assessment and plan: SCD - Subjective Interval history: Patient had about 12 water BM overnight. She denies fevers/chills, N/V. Appetite is good per patient. - Constitutional Vitals: Temp Pulse Resp BP Pulse Ox 97.8 F 57 16 135/64 91 04/23/17 07:39 04/23/17 07:39 04/23/17 07:39 04/23/17 07:39 04/23/17 07:39 General appearance: Present: cooperative, A&O X 3, no acute distress, obese, answers questions appropriately - Head Head exam: Present: atraumatic, normocephalic - Eye Eye exam: Present: PERRL, conjuntiva pink, sclera anicteric Pupils: Present: PERRL - Neck Neck exam general surgery: Present: supple, trachea midline. Absent: lymphadenopathy - Respiratory Respiratory exam: Present: CTAB. Absent: accessory muscle use, rales, rhonchi, wheezes - Cardiovascular Cardiovascular exam: Present: RRR, +S1, +S2. Absent: diastolic murmur, gallop, rubs, systolic murmur - GI/Abdominal GI/Abdominal exam: Present: hyperactive bowel sounds, soft, no peritoneal signs. Absent: distended, tenderness - Extremities Exam Extremities exam: Present: warm, radial pulses palpable and symmetrical. Absent : calf tenderness, cyanotic, pedal edema - Neurological Exam Neurological exam: Present: CN II-XII intact, oriented X3, no focal deficits. Absent: pronater drift, facial droop, speech deficit - Skin Skin exam: Present: dry, intact Internal Medicine: Result - Labs CBC & Chem 7: 04/23/17 04:14 04/23/17 04:14 Labs: Short CBC 04/22/17 04/23/17 Range/Units 08:02 04:14 WBC 3.5 L D 3.0 L (4.3-11.1) K/mcL Hgb 8.5 L 8.3 L (11.5-15.4) g/dL Hct 26.3 L 25.9 L (35.3-44.9) % Plt Count 54 L 41 L (140-400) K/mcL Neutrophils # 2.2 2.0 (1.6-8.9) K/mcL BMP 04/22/17 04/23/17 08:02 04:14 Sodium 142 140 Potassium 3.3 L 2.7 L Chloride 99 96 L Carbon Dioxide 37 H 37 H BUN 19 18 Creatinine 1.28 H 1.38 H Glucose 108 H 136 H Calcium 8.5 L 8.3 L - ABG Interpretation ABG results: PT/INR, D-dimer PT 11.6 Seconds (9.4-12.1) 04/17/17 15:35 - Impressions Impressions Abdomen Ultrasound 04/22/17 09:00 IMPRESSION: 1. Nodular contour of the liver is suggestive of cirrhosis. Correlate with risk factors. 2. Mild splenomegaly which may represent sequelae of portal hypertension. 3. Cholelithiasis. D/ / 04/22/2017 10:03:12 Rosemary Gee MD / [facility] Interpreting Provider: Rosemary Gee MD - VTE Documentation of Mechanical Device: Intermittent pneumatic compression device Consult Discharge Plan - Plan Referrals: Clifton Kumar DO [Primary Care Provider] - 02/20/18 9:30 am (Please follow up as schedule...)
[2017-04-23 09:14] LABS: Albumin 3.2 g/dL (3.5-5.7); Albumin/Globulin Ratio 1.5 (1.1-2.2); Bilirubin,Direct 0.3 mg/dL (0.0-0.2); Bilirubin,Indirect 0.4 mg/dL (0.0-1.2); Bilirubin,Total 0.7 mg/dL (0.3-1.0); Globulin 2.2 g/dL (2.4-3.5); Total Protein 5.4 g/dL (6.4-8.9)
[2017-04-23] MEDS: Temazepam 15 MG CAPSULE PO SCH (20:21)
[2017-04-23] MEDS: Melatonin 3 MG TABLET PO SCH (20:22)
[2017-04-24] MEDS: Sodium Bicarbonate 150 MEQ in D5% in Water 1,000 ML IVC SCH (05:36)
[2017-04-24 05:49] LABS: Red Blood Count 2.92 M/mcL (3.82-4.97)
[2017-04-24 05:51] LABS: Hematocrit 27.3 % (35.3-44.9); Hemoglobin 8.7 g/dL (11.5-15.4); Immature Platelets 4.6 % (1.1-6.1); Mean Corpuscular HGB Conc 31.9 g/dL (31.6-35.5); Mean Corpuscular Hemoglobin 29.8 pg (28.0-33.3); Mean Corpuscular Volume 93.5 fL (83.0-100.0); Mean Platelet Volume 11.3 fL (9.4-12.4); Monocytes # 0.3 K/mcL (0.0-1.3); Red Cell Distribution Width 17.3 % (11.5-14.5)
[2017-04-24 06:12] LABS: Platelet Count 34 K/mcL (140-400)
[2017-04-24 06:17] LABS: Calcium 8.2 mg/dL (8.6-10.3); Potassium 3.1 mEq/L (3.5-5.1)
[2017-04-24 06:43] LABS: Lymphocytes # 1.2 K/mcL (0.6-4.6); Neutrophils # 1.6 K/mcL (1.6-8.9); Platelet Estimate Decreased (Normal)
--- NOTE | 2017-04-24 07:24 | Internal Med Progress Note ---
Date of Encounter: 04/24/17 Time of Encounter: 07:18 - Assessment and plan (1) Orthostasis Current Visit: Yes Status: Acute Assessment and plan: - Positive for orthostatic hypotension. - Possibly anemia related - Concern for drug induced hypotension in addition to the orthostasis as pt's BP has been appropriately controlled with half the dose of BB and holding home dose of Lisinopril. Pt clinically improving with adjustment in home medications. Consider adding. - States she is able to get up and ambulate. Stable (2) Anemia Current Visit: Yes Status: Acute Assessment and plan: Hgb dropped to 6.4; previously 10. No obvious active bleeding. Patient denies melena. Symptomatic with general weakness. 2 units PRBC given (04/19, 04/20). Hemodynamically stable. Monitor H&H, Transfuse for Hgb less than 8. Also now with pancytopenia, likely from MTX Oncology and GI following, recommendations appreciated. - methotrexate held Qualifiers: Anemia type: unspecified type Qualified Code(s): D64.9 - Anemia, unspecified (3) Liver cirrhosis Current Visit: Yes Status: Acute Assessment and plan: Suggestive findings on abdominal ultrasound. Appreciate GI input on this. On She denies history of IVDA, unsanitary tattoos. She does state she had one transfusion in the 80s but unsure of which year specifically. She denies abdominal pain. - Likely from methotrexate - CMP 04/22: ALP 110, AST & ALT within normal limits - Viral hepatitis panel pending Qualifiers: Hepatic cirrhosis type: unspecified hepatic cirrhosis Ascites presence: without ascites Qualified Code(s): K74.60 - Unspecified cirrhosis of liver (4) Rnnuu-nt-qshsyke kidney injury Current Visit: Yes Status: Resolved Assessment and plan: secondary excessive GI losses. - Patient back at baseline. Qualifiers: Acute renal failure type: unspecified Chronic kidney disease stage: unspecified stage Qualified Code(s): N17.9 - Acute kidney failure, unspecified ; N18.9 - Chronic kidney disease, unspecified; N18.9 - Chronic kidney disease, unspecified (5) Crohns disease Current Visit: Yes Status: Acute Assessment and plan: hx Crohn's disease since . Has been on methotrexate for 2 years. Reports 10 -15 BM a day, humira and other medications were prescribed but were not covered by insurance. Stool studies negative. Cont IV steroids. GI following Qualifiers: Gastrointestinal tract location: unspecified location Digestive disease complication type: unspecified complication Qualified Code(s): K50.919 - Crohn 's disease, unspecified, with unspecified complications (6) Hypokalemia Current Visit: Yes Status: Acute Assessment and plan: Replace as needed. 04/23 worsening BMs overnight and potassium 2.7 Will replace cautiously as patient does have chronic kidney disease (7) Portal hypertension Current Visit: Yes Status: Acute Assessment and plan: Likely sequela from cirrhosis (8) Diabetes Current Visit: Yes Status: Acute Assessment and plan: Diabetic diet, ISS, monitor closely as patient now on steroids. Qualifiers: Diabetes mellitus type: type 2 Diabetes mellitus complication status: without complication Diabetes mellitus intermediate designer insulin use: without [facility] use Qualified Code(s): E11.9 - Type 2 diabetes mellitus without complications (9) DVT prophylaxis Current Visit: Yes Status: Acute Assessment and plan: SCD - Subjective Interval history: Ms. Schilling is a 66 year old female with a PMH of diabetes, GERD, glaucoma, hypertension, and chronic kidney disease stage IV presented for weakness, falls , pre-syncope, disequilibrium for one month. She was orthostatic positive. She required 2 units PRBC during this admission. GI was consulted and patient started on Solu-Medrol which improved symptoms. A right upper quadrant ultrasound done showed findings consistent with liver cirrhosis and portal hypertension. Heme/Onc consulted for pancytopenia and Methotrexate was discontinued. Hepatitis panel pending. Hemoglobin stable. Patient had no diarrhea overnight. No acute events. - Constitutional Vitals: Temp Pulse Resp BP Pulse Ox 98.5 F 54 16 152/71 94 04/24/17 04:24 04/24/17 04:24 04/24/17 04:24 04/24/17 04:24 04/24/17 04:24 General appearance: Present: cooperative, A&O X 3, no acute distress, obese, answers questions appropriately - Head Head exam: Present: atraumatic, normocephalic - Eye Eye exam: Present: PERRL, conjuntiva pink, sclera anicteric Pupils: Present: PERRL - Neck Neck exam general surgery: Present: supple, trachea midline. Absent: lymphadenopathy - Respiratory Respiratory exam: Present: CTAB. Absent: accessory muscle use, rales, rhonchi, wheezes - Cardiovascular Cardiovascular exam: Present: RRR, +S1, +S2. Absent: diastolic murmur, gallop, rubs, systolic murmur - GI/Abdominal GI/Abdominal exam: Present: normal bowel sounds, soft, no peritoneal signs. Absent: distended, tenderness - Extremities Exam Extremities exam: Present: warm, radial pulses palpable and symmetrical. Absent : calf tenderness, cyanotic, pedal edema - Expanded Lower Extremities Exam Knee exam: Present: full ROM (Left knee with mild swelling s/p arthroscopy. No erythema noted. There is trace edema of left lower leg. Full passive ROM. ) - Neurological Exam Neurological exam: Present: CN II-XII intact, oriented X3, no focal deficits. Absent: pronater drift, facial droop, speech deficit - Skin Skin exam: Present: dry, intact Internal Medicine: Result - Labs CBC & Chem 7: 04/24/17 04:16 04/24/17 04:16 Labs: Short CBC 04/24/17 Range/Units 04:16 WBC 3.1 L (4.3-11.1) K/mcL Hgb 8.7 L (11.5-15.4) g/dL Hct 27.3 L (35.3-44.9) % Plt Count 34 L (140-400) K/mcL Neutrophils # 1.6 (1.6-8.9) K/mcL BMP 04/23/17 04/24/17 04:14 04:16 Sodium 140 140 Potassium 2.7 L 3.1 L Chloride 96 L 92 L Carbon Dioxide 37 H 43 H* BUN 18 19 Creatinine 1.38 H 1.35 H Glucose 136 H 102 Calcium 8.3 L 8.2 L Liver Function 04/23/17 Range/Units 04:14 Total Bilirubin 0.7 (0.3-1.0) mg/dL Direct Bilirubin 0.3 H (0.0-0.2) mg/dL AST 35 (13-39) Units/L ALT 29 (7-52) Units/L Alkaline Phosphatase 110 H (34-104) Units/L Albumin 3.2 L (3.5-5.7) g/dL - ABG Interpretation ABG results: PT/INR, D-dimer PT 11.6 Seconds (9.4-12.1) 04/17/17 15:35 - VTE Documentation of Mechanical Device: Intermittent pneumatic compression device Consult Discharge Plan - Plan Referrals: Clifton Kumar DO [Primary Care Provider] - 04/25/17 9:30 am (Please follow up as schedule...)
[2017-04-24] MEDS: Cholecalciferol (D-3) 1,000 UNIT TABLET PO SCH (07:55)
[2017-04-24] MEDS: Folic Acid 1 MG TABLET PO SCH (07:56)
[2017-04-24] MEDS: Magic Mouthwash 10 ML UD Cup PO SCH ×4 (07:56→20:04)
[2017-04-24] MEDS: Cyanocobalamin (B-12) 1,000 MCG TABLET PO SCH (07:56)
[2017-04-24] MEDS: Venlafaxine XR (24 HR) 150 MG CAP.ER.24H PO SCH (07:56)
[2017-04-24] MEDS: Gabapentin 100 MG CAPSULE PO SCH ×3 (08:12→20:04)
[2017-04-24] MEDS: Insulin LISPRO 300 UNITS/3 ML VIAL SQ SCH ×5 (08:15→20:04)
[2017-04-24 08:39] LABS: ABG Base Excess 19 mEq/L (-2 to 3); ABG HCO3 43 mEq/L (21-27); ABG Oxygen Saturation 95 % (95-98); ABG PCO2 45 mmHg (35-45); ABG PH 7.58 pH Units (7.32-7.45); ABG PO2 63 mmHg (85-104); ABG TCO2 44 mEq/L (20-26)
[2017-04-24 09:58] LABS: Hepatitis A Antibody IgM Nonreactive (Nonreactive); Hepatitis B Core IgM Nonreactive (Nonreactive); Hepatitis B Surface Antigen Nonreactive (Nonreactive); Hepatitis C Virus Antibody Nonreactive (Nonreactive)
[2017-04-24] MEDS: methylPREDNISolone 60 MG in 0.9 % Sodium Chloride 100 ML IVPB SCH (09:58)
--- NOTE | 2017-04-24 16:49 | Event Note ---
Date of Encounter: 04/24/17 Time of Encounter: 15:00 Patient seen today as inpatient as outpatient visit was missed secondary to development of ELIZABETH and inpatient status. Patient is doing well. Incisions were clean, dry and intact. Sutures were removed without complication. Steri-strips placed. Instructed patient to avoid soaking in a pool, tub, or hottub for another 2 weeks. Remove bandages in 5-7 days. Cleanse with soap and water daily. I outlined post-operative restrictions and discussed the operative report. Continue to Ice and Elevate. Pain/Swelling control as needed. Patient to follow up as outpatient with [facility] next week to check on progress and insure patient is returning to baseline. Patient verbalized understanding. Appt made for patient from our office.
[2017-04-24] MEDS: Melatonin 3 MG TABLET PO SCH (20:04)
[2017-04-24] MEDS: Temazepam 15 MG CAPSULE PO SCH (20:04)
[2017-04-24 23:48] LABS: Beta Globulin (PEP) 0.76 g/dL (0.48-1.10)
[2017-04-24 23:53] LABS: Kappa Qnt Free Light Chains 3.34 mg/dL (0.33-1.94); Lambda Qnt Free Light Chains 2.3 mg/dL (0.57-2.63)
[2017-04-25 05:22] LABS: Immature Granulocytes % 0.7 % (0-4); Red Cell Distribution Width 18.2 % (11.5-14.5)
[2017-04-25 05:24] LABS: Eosinophils # 0.1 K/mcL (0.0-0.6); Eosinophils % 1.8 %; Hematocrit 26.1 % (35.3-44.9); Hemoglobin 8.4 g/dL (11.5-15.4); Immature Platelets 8.4 % (1.1-6.1); Lymphocytes # 1.3 K/mcL (0.6-4.6); Lymphocytes % 47.1 %; Mean Corpuscular HGB Conc 32.2 g/dL (31.6-35.5); Mean Corpuscular Hemoglobin 30.7 pg (28.0-33.3); Mean Corpuscular Volume 95.3 fL (83.0-100.0); Monocytes # 0.3 K/mcL (0.0-1.3); Monocytes % 9.4 %; Red Blood Count 2.74 M/mcL (3.82-4.97)
[2017-04-25 05:25] LABS: Neutrophils # 1.2 K/mcL (1.6-8.9)
[2017-04-25 05:29] LABS: Platelet Count 30 K/mcL (140-400)
[2017-04-25 05:56] LABS: Platelet Estimate Decreased (Normal)
[2017-04-25 05:57] LABS: Anisocytosis 1+ (Not Present)
[2017-04-25 06:01] LABS: Calcium 7.7 mg/dL (8.6-10.3); Potassium 2.8 mEq/L (3.5-5.1)
[2017-04-25 06:12] LABS: VBG HCO3 44 mEq/L (21-27); VBG PCO2 60 mmHg (41-51); VBG PH 7.47 pH Units (7.32-7.42); VBG PO2 78 mmHg (25-50)
[2017-04-25] MEDS: Insulin LISPRO 300 UNITS/3 ML VIAL SQ SCH ×4 (07:24→20:53)
[2017-04-25] MEDS: Cyanocobalamin (B-12) 1,000 MCG TABLET PO SCH (07:51)
[2017-04-25] MEDS: Venlafaxine XR (24 HR) 150 MG CAP.ER.24H PO SCH (07:51)
[2017-04-25] MEDS: Gabapentin 100 MG CAPSULE PO SCH ×3 (07:52→20:56)
[2017-04-25] MEDS: methylPREDNISolone 60 MG in 0.9 % Sodium Chloride 100 ML IVPB SCH (07:53)
[2017-04-25] MEDS: Magic Mouthwash 10 ML UD Cup PO SCH ×4 (07:53→20:56)
[2017-04-25] MEDS: Cholecalciferol (D-3) 1,000 UNIT TABLET PO SCH (07:59)
[2017-04-25] MEDS: Folic Acid 1 MG TABLET PO SCH (08:00)
[2017-04-25] MEDS ORDERED: Potassium Chloride 40 MEQ, Lidocaine 1% 2 ML in D5% in Water 500 ML IVPB ONE (08:04)
--- NOTE | 2017-04-25 09:34 | Internal Med Progress Note ---
Date of Encounter: 04/25/17 Time of Encounter: 10:10 - Assessment and plan (1) Orthostasis Current Visit: Yes Status: Resolved Assessment and plan: Improved. Blood pressure is elevated this morning. We will resume lisinopril at a lower dose. (2) Gujuv-fk-vdyrhnj kidney injury Current Visit: Yes Status: Resolved Assessment and plan: Renal function remains stable. Qualifiers: Acute renal failure type: unspecified Chronic kidney disease stage: unspecified stage Qualified Code(s): N17.9 - Acute kidney failure, unspecified ; N18.9 - Chronic kidney disease, unspecified; N18.9 - Chronic kidney disease, unspecified (3) Anemia Current Visit: Yes Status: Chronic Assessment and plan: Hemoglobin does remain stable. 8.4 today. No active bleeding. Qualifiers: Anemia type: due to chronic kidney disease Chronic kidney disease stage: stage 3 (moderate) Qualified Code(s): N18.3 - Chronic kidney disease, stage 3 (moderate); D63.1 - Anemia in chronic kidney disease; D63.1 - Anemia in chronic kidney disease (4) Crohns disease Current Visit: Yes Status: Acute Assessment and plan: Being treated with Solu-Medrol with improvement in symptoms. We will transition to oral prednisone. Qualifiers: Gastrointestinal tract location: unspecified location Digestive disease complication type: unspecified complication Qualified Code(s): K50.919 - Crohn 's disease, unspecified, with unspecified complications (5) Diabetes Current Visit: Yes Status: Chronic Assessment and plan: Well controlled. Continue current insulin regimen and diabetic diet. Qualifiers: Diabetes mellitus type: type 2 Diabetes mellitus complication status: without complication Diabetes mellitus chcf insulin use: without chcf use Qualified Code(s): E11.9 - Type 2 diabetes mellitus without complications (6) Hypokalemia Current Visit: Yes Status: Acute Assessment and plan: Continue to replete orally and intravenously. (7) Liver cirrhosis Current Visit: Yes Status: Acute Assessment and plan: Ultrasound of the abdomen shows features suggestive of cirrhosis. Hepatitis viral panel has been negative. Qualifiers: Hepatic cirrhosis type: unspecified hepatic cirrhosis Ascites presence: without ascites Qualified Code(s): K74.60 - Unspecified cirrhosis of liver (8) Portal hypertension Current Visit: Yes Status: Acute Assessment and plan: With splenomegaly. (9) Thrombocytopenia Current Visit: Yes Status: Acute Assessment and plan: Could be due to splenomegaly and cirrhosis. Along with use of methotrexate. Methotrexate on hold. Avoid anticoagulation. Monitor platelet counts. (10) DVT prophylaxis Current Visit: Yes Status: Acute Assessment and plan: With SCDs. No medical and coagulation due to thrombocytopenia. (11) Metabolic alkalosis Current Visit: Yes Status: Acute Assessment and plan: Due to bicarbonate infusion. Now stopped. Levels trending down. We will continue to monitor. - Subjective Interval history: Patient is awake and alert. Lying in bed. Appears comfortable. No new complaints at this time. Tolerating diet well. No hematemesis or melena. - Constitutional Vitals: Temp Pulse Resp BP Pulse Ox 98.1 F 62 17 145/75 91 04/25/17 07:12 04/25/17 07:12 04/25/17 07:12 04/25/17 07:12 04/25/17 07:12 General appearance: Present: cooperative, A&O X 3, no acute distress, obese, answers questions appropriately - Neck Neck exam general surgery: Present: supple, trachea midline. Absent: lymphadenopathy - Respiratory Respiratory exam: Present: CTAB. Absent: accessory muscle use, rales, rhonchi, wheezes - Cardiovascular Cardiovascular exam: Present: RRR, +S1, +S2. Absent: diastolic murmur, gallop, rubs, systolic murmur - GI/Abdominal GI/Abdominal exam: Present: normal bowel sounds, soft, no peritoneal signs. Absent: distended, tenderness - Extremities Exam Extremities exam: Present: warm, radial pulses palpable and symmetrical. Absent : calf tenderness, cyanotic, pedal edema - Neurological Exam Neurological exam: Present: alert, oriented X3, no focal deficits. Absent: facial droop, speech deficit - Skin Skin exam: Present: dry, intact Internal Medicine: Result - Labs CBC & Chem 7: 04/25/17 04:19 04/25/17 04:19 Labs: Short CBC 04/25/17 Range/Units 04:19 WBC 2.8 L (4.3-11.1) K/mcL Hgb 8.4 L (11.5-15.4) g/dL Hct 26.1 L (35.3-44.9) % Plt Count 30 L* (140-400) K/mcL Neutrophils # 1.2 L (1.6-8.9) K/mcL BMP 04/25/17 04:19 Sodium 143 Potassium 2.8 L Chloride 94 L Carbon Dioxide 42 H* BUN 19 Creatinine 1.38 H Glucose 83 Calcium 7.7 L - ABG Interpretation ABG results: ABG ABG pH 7.58 pH Units (7.32-7.45) H 04/24/17 08:34 ABG pCO2 45 mmHg (35-45) 04/24/17 08:34 ABG pO2 63 mmHg (85-104) L 04/24/17 08:34 ABG O2 Saturation 95 % (95-98) 04/24/17 08:34 PT/INR, D-dimer PT 11.6 Seconds (9.4-12.1) 04/17/17 15:35 - VTE Documentation of Mechanical Device: Intermittent pneumatic compression device Consult Discharge Plan - Plan Referrals: Clifton Kumar DO [Primary Care Provider] - 05/02/17 3:30 pm (Follow up appointment with Gabby MCCRACKEN on 05/02/17 at 03:30 pm. Appointment with Danyelle Miguel on 05/05/17 at 08:45 am, [facility]. )
[2017-04-25 14:45] LABS: Tissue Transglutaminase IgA 0 U/mL (0-3)
[2017-04-25 14:46] LABS: ANA IgG by ELISA NONE DETECTED (None Detected)
[2017-04-25 14:54] LABS: IFE Reflexed NOT DONE
[2017-04-25 16:57] LABS: Potassium 3.6 mEq/L (3.5-5.1)
[2017-04-25] MEDS: Melatonin 3 MG TABLET PO SCH (20:56)
[2017-04-25] MEDS: Temazepam 15 MG CAPSULE PO SCH (20:56)
[2017-04-26 06:02] LABS: Hemoglobin 8.7 g/dL (11.5-15.4); Mean Corpuscular Volume 96.8 fL (83.0-100.0)
[2017-04-26 06:04] LABS: Basophils % 0.4 %; Eosinophils # 0.1 K/mcL (0.0-0.6); Eosinophils % 2.9 %; Hematocrit 26.8 % (35.3-44.9); Immature Granulocytes % 0.7 % (0-4); Immature Platelets 13.1 % (1.1-6.1); Lymphocytes # 1.4 K/mcL (0.6-4.6); Lymphocytes % 50.9 %; Mean Corpuscular HGB Conc 32.5 g/dL (31.6-35.5); Mean Corpuscular Hemoglobin 31.4 pg (28.0-33.3); Mean Platelet Volume 11.2 fL (9.4-12.4); Monocytes # 0.3 K/mcL (0.0-1.3); Monocytes % 11.5 %; Neutrophils # 0.9 K/mcL (1.6-8.9); Red Blood Count 2.77 M/mcL (3.82-4.97); Red Cell Distribution Width 18.6 % (11.5-14.5); Segmented Neutrophils % 33.6 %
[2017-04-26 06:10] LABS: Platelet Count 40 K/mcL (140-400)
[2017-04-26 06:47] LABS: Hypochromasia Present (Not Present); Platelet Estimate Decreased (Normal)
[2017-04-26 06:48] LABS: Anisocytosis 1+ (Not Present); Microcytosis Present (Not Present); Polychromasia 1+ (Not Present)
[2017-04-26 06:49] LABS: Tear Drop Cells 1+ (Not Present)
[2017-04-26 06:58] LABS: Calcium 7.9 mg/dL (8.6-10.3); Potassium 3.4 mEq/L (3.5-5.1)
[2017-04-26 07:10] VITALS: BP 169/92
[2017-04-26] MEDS ORDERED: predniSONE 20 MG TABLET PO SCH (09:00)
[2017-04-26] MEDS: Insulin LISPRO 300 UNITS/3 ML VIAL SQ SCH (09:30)
[2017-04-26] MEDS: Cholecalciferol (D-3) 1,000 UNIT TABLET PO SCH (09:36)
[2017-04-26] MEDS: Cyanocobalamin (B-12) 1,000 MCG TABLET PO SCH (09:36)
[2017-04-26] MEDS: Venlafaxine XR (24 HR) 150 MG CAP.ER.24H PO SCH (09:36)
[2017-04-26] MEDS: Gabapentin 100 MG CAPSULE PO SCH (09:36)
[2017-04-26] MEDS: Folic Acid 1 MG TABLET PO SCH (09:36)
[2017-04-26] MEDS: Magic Mouthwash 10 ML UD Cup PO SCH (09:37)
--- NOTE | 2017-04-26 10:37 | Discharge Summary ---
- NOTES TO OUTPATIENT PROVIDER Notes to Outpatient Provider: Follow-up with hematology regarding thrombocytopenia. Follow up with nephrology regarding chronic kidney disease. Date of Encounter: 04/26/17 Time of Encounter: 09:15 - Discharge Diagnosis (1) Orthostasis Priority: Primary Status: Resolved (2) [id number] kidney injury Priority: Secondary Status: Resolved Qualifiers: Acute renal failure type: unspecified Chronic kidney disease stage: unspecified stage Qualified Code(s): N17.9 - Acute kidney failure, unspecified ; N18.9 - Chronic kidney disease, unspecified; N18.9 - Chronic kidney disease, unspecified (3) Anemia Priority: Secondary Status: Chronic Qualifiers: Anemia type: due to chronic kidney disease Chronic kidney disease stage: stage 3 (moderate) Qualified Code(s): N18.3 - Chronic kidney disease, stage 3 (moderate); D63.1 - Anemia in chronic kidney disease; D63.1 - Anemia in chronic kidney disease (4) Crohns disease Priority: Secondary Status: Acute Qualifiers: Gastrointestinal tract location: unspecified location Digestive disease complication type: unspecified complication Qualified Code(s): K50.919 - Crohn 's disease, unspecified, with unspecified complications (5) Diabetes Priority: Secondary Status: Chronic Qualifiers: Diabetes mellitus type: type 2 Diabetes mellitus complication status: without complication Diabetes mellitus superintendent terminal insulin use: without superintendent terminal use Qualified Code(s): E11.9 - Type 2 diabetes mellitus without complications (6) Hypokalemia Priority: Secondary Status: Acute (7) Liver cirrhosis Priority: Secondary Status: Acute Qualifiers: Hepatic cirrhosis type: unspecified hepatic cirrhosis Ascites presence: without ascites Qualified Code(s): K74.60 - Unspecified cirrhosis of liver (8) Portal hypertension Priority: Secondary Status: Acute (9) Thrombocytopenia Priority: Secondary Status: Acute (10) DVT prophylaxis Priority: Secondary Status: Acute (11) Metabolic alkalosis Priority: Secondary Status: Acute Hospital course: Ms. Schilling is a 66 year old female patient who has a history of Crohn's disease, diabetes, hypertension, gastroesophageal reflux disease who was hospitalized here with generalized weakness along with multiple falls and near syncope. She also had acute kidney injury on presentation. She was started on IV fluids. She has been having nausea and vomiting and gastroenterology was also consulted. Per their evaluation, they recommended checking stool for C. difficile. This was negative. Patient was then started on treatment for Crohn' s flareup with intravenous steroids. Her symptoms began to improve after that. Initially she was acidotic and required intravenous bicarbonate infusion to correct this. She later became clearly make an bicarbonate infusion was stopped. Her hyperkalemia is now improving. She also developed hypokalemia and was treated with potassium supplements with improvement in her potassium levels. Presently she is able to tolerate regular diet. Her diarrhea episodes have improved in severity and frequency. Her renal function has also improved and she is now stable to be discharged home. She will follow up with gastroenterology after discharge. She will also complete a stool tapering course of steroids to continue treatment of for Crohn's flareup. Patient did develop thrombocytopenia during her stay here. This is likely due to cirrhosis which was diagnosed with ultrasound of the liver. Hepatitis viral panel was negative. Most likely cause of her cirrhosis is due to steatohepatitis. She also developed anemia and hematology was consulted after patient was transfused 2 units packed red blood cells. They recommended outpatient follow-up and possible bone marrow biopsy after discharge for further evaluation. Her anemia is likely due to complication of nutritional deficiency with underlying Crohn's and chronic kidney disease. She will need to follow up with hematology after discharge for further evaluation and management. Patient also takes methotrexate which can cause her anemia and thrombocytopenia. This has now been held. May discuss further with GI about resuming this medication after discharge. Discharge discussed with: patient - Time Spent with Patient Total time spent providing and/or coordinating discharge services: Greater than 30 minutes (40 min) - Discharge Medications Prescriptions: Allopurinol [Zyloprim 100 MG] 100 mg PO DAILY #30 tablet Gabapentin [Neurontin] 200 mg PO TID #90 capsule Lisinopril [Zestril] 10 mg PO DAILY #30 tablet Metoprolol [Lopressor] 25 mg PO BID #60 tablet predniSONE [PredniSONE] 60 mg PO DAILY 30 Days tablet Home Medications: Cholecalciferol (D-3) [Vitamin D] 2,000 unit PO DAILY 04/14/17 [History] Cyanocobalamin (Vitamin B-12) [Vitamin B-12] 1,000 mcg PO DAILY 04/14/17 [ History] Folic Acid 1 mg PO DAILY 04/14/17 [History] GlipiZIDE [Glipizide ER] 10 mg PO BID 04/14/17 [History] HYDROcodone/Acet 5/325 mg [Aurora 5-325 mg] 1 tab PO Q6H PRN 4 Days #14 tab 04/14 [Rx] Omeprazole [PriLOSEC] 20 mg PO DAILY 04/14/17 [History] Pioglitazone HCl 30 mg PO DAILY 04/14/17 [History] Temazepam [Restoril] 30 mg PO HS 04/14/17 [History] Venlafaxine HCl [Venlafaxine HCl ER] 150 mg PO QAM 04/14/17 [History] Venlafaxine [Effexor] 75 mg PO QPM 04/14/17 [History] Allopurinol [Zyloprim 100 MG] 100 mg PO DAILY #30 tablet 04/26/17 [Rx] Gabapentin [Neurontin] 200 mg PO TID #90 capsule 04/26/17 [Rx] Lisinopril [Zestril] 10 mg PO DAILY #30 tablet 04/26/17 [Rx] Metoprolol [Lopressor] 25 mg PO BID #60 tablet 04/26/17 [Rx] predniSONE [PredniSONE] 60 mg PO DAILY 30 Days tablet 04/26/17 [Rx] Allergies/Adverse Reactions: 3 Allergy/AdvReac Type Severity Reaction Status Date / Time No Known Allergies Allergy Verified 04/17/17 14:37 Date of admission: 04/19/17 16:35 Primary care physician: Clifton Kumar, Consults: 04/20/17 09:53 Consult to Nephrology [CONS] Routine Consulting Provider: Kidney Susie/ROSARIO/AL/ALLI Reason for Consult: Acute on Chronic Renal Call Completed: No 04/20/17 16:36 Consult to Oncology [CONS] Routine Consulting Provider: Oncology [facility] Reason for Consult: pancytopenia Call Completed: Yes 04/24/17 07:51 Consult to Physical Therapy [CONS] Routine Comment: Evaluate, develop and implement POC Reason for Consult: s/p left knee arthroscopy 04/24/17 18:12 Consult to Nephrology [CONS] Routine Consulting Provider: Kidney Susie/ROSARIO/AL/ALLI Reason for Consult: Alkalosis correction Call Completed: No Discharging clinician: Juan José Christianson Anticipated date of discharge: 04/26/17 - Constitutional Vitals: Temp Pulse Resp BP Pulse Ox 98.2 F 61 17 169/92 96 04/26/17 07:05 04/26/17 07:05 04/26/17 07:05 04/26/17 07:05 04/26/17 03:16 General appearance: Present: cooperative, A&O X 3, no acute distress, obese, answers questions appropriately - Neck Neck exam general surgery: Present: supple, trachea midline. Absent: lymphadenopathy - Respiratory Respiratory exam: Present: CTAB. Absent: accessory muscle use, rales, rhonchi, wheezes - Cardiovascular Cardiovascular exam: Present: RRR, +S1, +S2. Absent: diastolic murmur, gallop, rubs, systolic murmur - GI/Abdominal GI/Abdominal exam: Present: normal bowel sounds, soft, no peritoneal signs. Absent: distended, tenderness - Extremities Exam Extremities exam: Present: warm, radial pulses palpable and symmetrical. Absent : calf tenderness, cyanotic, pedal edema - Neurological Exam Neurological exam: Present: CN II-XII intact, oriented X3, no focal deficits. Absent: facial droop, speech deficit - Patient Status Disposition: Home, Self-Care Condition: Good Functional capacity at discharge: independent ambulation Overall status at discharge: patient is progressing back to baseline - Ambulatory Orders Ambulatory Orders: Complete Blood Count [HEME] Time Frame: 04/28/17, Facility: [facility], Location: Lab Comprehensive Metabolic Panel [CHEM] Time Frame: 04/28/17, Facility: [facility], Location: Lab - Discharge Instructions Instructions: Syncope (DC), Diabetes Mellitus Type 2 in Adults (DC), Chronic Hypertension (DC), Anemia (GEN), Fall Prevention (DC) Follow Up With: Clifton Kumar DO [Primary Care Provider] - 05/02/17 3:30 pm (Follow up appointment with Gabby MCCRACKEN on 05/02/17 at 03:30 pm. Appointment with Danyelle Miguel on 05/05/17 at 08:45 am, [facility]. ) Margarito Pickard MD [Partnered Physician] - 05/10/17 4:30 pm (Please follow up as schedule...) Additional Instructions: Follow up with [facility] in one week. Follow-up with nephrology in 1-2 weeks Follow-up with gastroenterology in 1-2 weeks for Crohn's disease - Diet and Activity Activity: increase activity as tolerated Diet: diabetic diet, low fat, low cholesterol, low salt diet - VTE Documentation of Mechanical Device: Intermittent pneumatic compression device
--- NOTE | 2017-04-26 11:18 | Gastroenterology Progress Note ---
Date of Encounter: 04/26/17 Time of Encounter: 10:35 - Assessment and plan (1) Crohns disease Current Visit: Yes Status: Acute Assessment and plan: Pt has improved symptoms on IV steroids. Change to PO Prednisone taper on discharge. Stool calprotectin normal. Follow up with Dr. Pickard as outpatient in 1- 2 weeks. Qualifiers: Gastrointestinal tract location: unspecified location Digestive disease complication type: unspecified complication Qualified Code(s): K50.919 - Crohn 's disease, unspecified, with unspecified complications (2) Anemia Current Visit: Yes Status: Chronic Assessment and plan: Iron and ferritin normal. She denies any bleeding. Hgb stable. Qualifiers: Anemia type: due to chronic kidney disease Chronic kidney disease stage: stage 3 (moderate) Qualified Code(s): N18.3 - Chronic kidney disease, stage 3 (moderate); D63.1 - Anemia in chronic kidney disease; D63.1 - Anemia in chronic kidney disease - Time Spent With Patient Total time spent is greater than 50% in coordination of care (as documented) at patient's floor/unit and/or counseling patient: - Subjective Interval history: Pt reports feeling well and is without acute complaint at this time. She is tolerating diet well. - Constitutional Vitals: Temp Pulse Resp BP Pulse Ox 98.2 F 61 17 169/92 96 04/26/17 07:05 04/26/17 07:05 04/26/17 07:05 04/26/17 07:05 04/26/17 03:16 General appearance: Present: cooperative, A&O X 3, no acute distress, answers questions appropriately - Head Head exam: Present: atraumatic, normocephalic - Eye Eye exam: Present: normal appearance, sclera anicteric - ENT ENT exam: Present: mucous membranes moist - Neck Neck exam general surgery: Present: normal inspection, trachea midline - Respiratory Respiratory exam: Present: CTAB. Absent: rales, rhonchi - Cardiovascular Cardiovascular exam: Present: RRR, +S1, +S2 - GI/Abdominal GI/Abdominal exam: Present: soft, no peritoneal signs. Absent: distended, firm , guarding, tenderness - Rectal Rectal exam: Present: deferred - Extremities Exam Extremities exam: Present: warm - Neurological Exam Neurological exam: Present: no focal deficits - Psychiatric Psychiatric exam: Present: normal affect, normal mood - Skin Skin exam: Present: dry, intact, normal color, warm Results - Labs CBC & Chem 7: 04/26/17 05:28 04/26/17 05:28 Labs: Last Result Calcium 7.9 mg/dL (8.6-10.3) L 04/26/17 05:28 Iron 137 mcg/dL (50-170) 04/19/17 11:49 % Saturation 39 % (15-50) 04/19/17 11:49 Transferrin 248 mg/dL (203-362) 04/19/17 11:49 Ferritin 215 ng/ml (10-120) H 04/19/17 11:49 Troponin I < 0.03 ng/mL (< 0.04) 04/18/17 00:22 Vitamin B12 980 pg/mL (250-1100) 04/21/17 18:33 Folate 8.1 ng/mL (3.0-16.0) 04/21/17 18:33 Stool Calprotectin <16 ug/g (<=50) 04/19/17 13:00 Urine Opiates Screen Positive ng/mL ([id number]) H 04/17/17 21:47 Entire Visit Hgb 8.7 g/dL (11.5-15.4) L 04/26/17 05:28 Hct 26.8 % (35.3-44.9) L 04/26/17 05:28 Haptoglobin 182 mg/dL (30-200) 04/21/17 18:33 PT 11.6 Seconds (9.4-12.1) 04/17/17 15:35 Ferritin 215 ng/ml (10-120) H 04/19/17 11:49 Total Bilirubin 0.7 mg/dL (0.3-1.0) 04/23/17 04:14 AST 35 Units/L (13-39) 04/23/17 04:14 ALT 29 Units/L (7-52) 04/23/17 04:14 Ammonia 41 mcmol/L (16-53) 04/23/17 09:17 Folate 8.1 ng/mL (3.0-16.0) 04/21/17 18:33 Stool Calprotectin <16 ug/g (<=50) 04/19/17 13:00 - ABG ABG results: ABG ABG pH 7.58 pH Units (7.32-7.45) H 04/24/17 08:34 ABG pCO2 45 mmHg (35-45) 04/24/17 08:34 ABG pO2 63 mmHg (85-104) L 04/24/17 08:34 ABG O2 Saturation 95 % (95-98) 04/24/17 08:34 PT/INR, D-dimer PT 11.6 Seconds (9.4-12.1) 04/17/17 15:35 - VTE Documentation of Mechanical Device: Intermittent pneumatic compression device Consult Discharge Plan - Plan Instructions: Syncope (DC), Diabetes Mellitus Type 2 in Adults (DC), Chronic Hypertension (DC), Anemia (GEN), Fall Prevention (DC) Additional Instructions: Follow up with [facility] in one week. Follow-up with nephrology in 1-2 weeks Follow-up with gastroenterology in 1-2 weeks for Crohn's disease Referrals: Clifton Kumar DO [Primary Care Provider] - 05/02/17 3:30 pm (Follow up appointment with Gabby MCCRACKEN on 05/02/17 at 03:30 pm. Appointment with Danyelle Miguel on 05/05/17 at 08:45 am, [facility]. ) Margarito Pickard MD [Partnered Physician] - 05/10/17 4:30 pm (Please follow up as schedule...) Prescriptions: Allopurinol [Zyloprim 100 MG] 100 mg PO DAILY #30 tablet Gabapentin [Neurontin] 200 mg PO TID #90 capsule Lisinopril [Zestril] 10 mg PO DAILY #30 tablet Metoprolol [Lopressor] 25 mg PO BID #60 tablet predniSONE [PredniSONE] 60 mg PO DAILY 30 Days tablet
== END 2017-04-26 12:40 | disposition home or self-care (01) | DRG 312 ==
LOC: EMEROO 14:34 → 2ANU 14:34 → SUATTDRO 04-19 16:35
PROVIDERS: ADMIT Internal Medicine; ATTEND Internal Medicine

== ENCOUNTER 2021-02-19 10:19 | Inpatient (IN) ==
[2021-02-19] MEDS ORDERED: 0.9 % Sodium Chloride 1,000 ML IVC ONE (11:25)
[2021-02-19 11:37] LABS: Basophils # 0.1 K/mcL (0.0-0.2); Basophils % 0.7 %; Eosinophils # 0.1 K/mcL (0.0-0.6); Eosinophils % 1.6 %; Hematocrit 40.5 % (35.3-44.9); Hemoglobin 13.1 g/dL (11.5-15.4); Lymphocytes # 3.3 K/mcL (0.6-4.6); Lymphocytes % 38.4 %; Mean Corpuscular HGB Conc 32.3 g/dL (31.6-35.5); Mean Corpuscular Hemoglobin 28.7 pg (28.0-33.3); Mean Corpuscular Volume 88.6 fL (83.0-100.0); Mean Platelet Volume 11.4 fL (9.4-12.4); Monocytes # 0.6 K/mcL (0.0-1.3); Monocytes % 7.1 %; Neutrophils # 4.4 K/mcL (1.6-8.9); Platelet Count 196 K/mcL (140-400); Red Blood Count 4.57 M/mcL (3.82-4.97); Red Cell Distribution Width 13.9 % (11.5-14.5); Segmented Neutrophils % 50.2 %; White Blood Count 8.7 K/mcL (4.3-11.1)
[2021-02-19 11:55] LABS: Albumin/Globulin Ratio 1.1 (1.1-2.2); Bilirubin,Direct 0.1 mg/dL (0.0-0.2); Bilirubin,Indirect 0.3 mg/dL (0.0-1.0); Bilirubin,Total 0.4 mg/dL (0.3-1.0); Calcium 8.7 mg/dL (8.6-10.3); Globulin 3.7 g/dL (2.4-3.5); Potassium 4.4 mEq/L (3.5-5.1); Total Protein 7.7 g/dL (6.4-8.9)
[2021-02-19 12:45] LABS: Influenza A PCR Negative (Negative); Influenza B PCR Negative (Negative); Resp. Syncytial Virus PCR Negative (Negative)
[2021-02-19 12:51] LABS: SARS-CoV-2 by PCR (In House) Positive (Negative)
[2021-02-19] MEDS ORDERED: Naloxone 0.4 MG/ML INJ IVP PRN (13:07)
[2021-02-19] MEDS ORDERED: Dextrose Gel 15 GM/37.5 ML TUBE PO PRN ×2 (13:07)
[2021-02-19] MEDS ORDERED: *HR* HYDROcodone/Acet 5/325 mg TABLET PO PRN (13:07)
[2021-02-19] MEDS ORDERED: Ondansetron 4 MG/2 ML VIAL IVP PRN (13:07)
[2021-02-19] MEDS ORDERED: D5% in Water 1,000 ML IVC PRN (13:07)
[2021-02-19] MEDS ORDERED: Acetaminophen 325 MG TABLET PO PRN (13:07)
[2021-02-19] MEDS ORDERED: *HR* Dextrose 50 % in Water (Syg) 50 ML SYRINGE IVP PRN (13:07)
[2021-02-19 13:15] LABS: Bacteria,Urine Few per hpf (None-Few); Bilirubin,Urine Negative (Negative); Blood,Urine Negative (Negative); Clarity,Urine Turbid (Clear); Color,Urine Yellow (Yellow); Glucose,Urine (UA) Normal (Normal); Hyaline Casts,Urine Few per lpf (None Seen); Ketones,Urine Negative (Negative); Leukocyte Esterase,Urine Large (Negative); Mucus,Urine Few per lpf (None-Few); Nitrite,Urine Positive (Negative); PH,Urine 5.5 pH Units (5.0-8.0); Protein,Urine 70 mg/dL (Neg-Trace); Specific Gravity,Urine 1.017 (1.010-1.025); Squamous Epithelial Cell,Urine Moderate per hpf (None-Few); Urobilinogen,Urine Normal (Normal); WBC,Urine TNTC per hpf (0-3)
[2021-02-19] MEDS ORDERED: *HR* Heparin 5,000 UNIT/ML VIAL ONE (16:24)
[2021-02-19] MEDS: Insulin LISPRO 300 UNITS/3 ML VIAL SUBQ SCH (16:42)
[2021-02-19] MEDS: 0.9 % Sodium Chloride 1,000 ML IVC SCH (16:43)
[2021-02-19] MEDS: *HR* Heparin 5,000 UNIT/ML VIAL SQ SCH (16:45)
[2021-02-20] MEDS ORDERED: Temazepam 15 MG CAPSULE PO ONE (00:17)
[2021-02-20 02:31] LABS: Basophils % 0.5 %; Eosinophils # 0.1 K/mcL (0.0-0.6); Eosinophils % 1.9 %; Hematocrit 34.9 % (35.3-44.9); Hemoglobin 11.2 g/dL (11.5-15.4); Immature Granulocytes % 1.5 % (0-4); Lymphocytes # 2.5 K/mcL (0.6-4.6); Mean Corpuscular HGB Conc 32.1 g/dL (31.6-35.5); Mean Corpuscular Hemoglobin 28.5 pg (28.0-33.3); Mean Corpuscular Volume 88.8 fL (83.0-100.0); Mean Platelet Volume 11.1 fL (9.4-12.4); Monocytes # 0.4 K/mcL (0.0-1.3); Platelet Count 161 K/mcL (140-400); Red Blood Count 3.93 M/mcL (3.82-4.97); Red Cell Distribution Width 13.8 % (11.5-14.5); Segmented Neutrophils % 49.1 %; White Blood Count 6.2 K/mcL (4.3-11.1)
[2021-02-20 02:43] LABS: Calcium 7.9 mg/dL (8.6-10.3); Magnesium 1.5 mg/dL (1.6-2.6)
[2021-02-20] MEDS: 0.9 % Sodium Chloride 1,000 ML IVC SCH (05:43)
[2021-02-20] MEDS: Insulin LISPRO 300 UNITS/3 ML VIAL SUBQ SCH ×3 (08:24→17:05)
[2021-02-20] MEDS: *HR* Heparin 5,000 UNIT/ML VIAL SQ SCH ×2 (08:37→17:33)
[2021-02-20 10:18] LABS: Sodium, Urine 31.3 mEq/L
[2021-02-20] MEDS ORDERED: Insulin LISPRO 300 UNITS/3 ML VIAL SUBQ SCH (21:00)
[2021-02-21] MEDS: *HR* Heparin 5,000 UNIT/ML VIAL SQ SCH (05:48)
[2021-02-21 06:07] LABS: Calcium 8.3 mg/dL (8.6-10.3); Potassium 3.9 mEq/L (3.5-5.1)
[2021-02-21] MEDS ORDERED: Benzonatate 100 MG CAPSULE PO PRN (07:17)
[2021-02-21 07:45] VITALS: BP 157/89; PULSE 96; TEMP 98.4; O2SAT 92
[2021-02-21] MEDS: Insulin LISPRO 300 UNITS/3 ML VIAL SUBQ SCH (07:46)
[2021-02-21] MEDS ORDERED: Folic Acid 1 MG TABLET PO SCH (09:00)
[2021-02-21] MEDS ORDERED: calcitrioL 0.25 MCG CAPSULE PO SCH (09:00)
[2021-02-21] MEDS ORDERED: Cyanocobalamin (B-12) 1,000 MCG TABLET PO SCH (09:00)
[2021-02-21] MEDS ORDERED: amLODIPine 5 MG TABLET PO SCH (09:00)
[2021-02-21] MEDS ORDERED: *HR* GlipiZIDE XL (24 HR) 10 MG TABLET PO SCH (09:00)
[2021-02-21] MEDS ORDERED: *HR* Pioglitazone 30 MG TABLET PO SCH (09:00)
[2021-02-21] MEDS ORDERED: Venlafaxine XR (24 HR) 150 MG CAP.ER.24H PO SCH (09:00)
[2021-02-21] MEDS ORDERED: Gabapentin 300 MG CAPSULE PO SCH (09:00)
[2021-02-21] MEDS ORDERED: Temazepam 15 MG CAPSULE PO SCH (21:00)
== END 2021-02-21 11:55 | disposition home or self-care (01) | DRG 178 ==
LOC: 2ANU 10:19 → EMEROOARM 10:19 → SUATTDRO 12:29 → 2ANU 13:26
PROVIDERS: ADMIT Internal Medicine; ATTEND Family Medicine